=== PATIENT | female | born 1935 | race Caucasian/White ===

== ENCOUNTER 2023-12-18 03:24 | Inpatient (IN) | payer MEDICARE, OTHER, SELFPAY ==
[2023-12-18] VITALS (9 sets, daily range): BP systolic 102–170; BP diastolic 58–120; BMI 24.0
--- NOTE | 2023-12-18 01:45 | ED.GENMED ---
History of Present Illness
General
Chief Complaint: Fall
Source: patient
Exam Limitations: none
Time Seen by Provider: 12/18/23 01:35
Travel History
Have you had any contact with someone who has COVID-19?: No
Do you have any symptoms of coronavirus? Fever > 100 degrees, chills, cough, shortness of breath, sore throat, loss of taste or smell, muscle aches, or headache?: No
History of Present Illness
History of Present Illness:
This is a 88 year old female that comes in by ambulance with c/o left hip pain. State that she was going up the steps and she is not sure what happened that she may have been half a sleep. States that she fell backward and went down about 4-5 steps
hitting her head on the floor. States that she tried to catch herself but was unable. State that she has pain in the left hip. Denies any LOC or blood thinners. Denies any fever,chills, chest pain, SOB, abd pain, nausea, vomiting, diarrhea,
headache, dizziness, urinary burning.
Past History
Past History
ED Past Medical History: Other (RA); Negative Asthma, HTN, Hypercholesterolemia or NIDDM
ED Past Surgical History: Gynecological (Hysterectomy)
Social History
Tobacco: Non-smoker
Alcohol: Occasional
Personal:
Living: alone
Review of Systems
Review of Systems
All Other Systems: ROS reviewed and negative except as documented in HPI and ROS
Constitutional: Reports no symptoms; Denies fever or chills
EENT: Reports no symptoms
Respiratory: Reports no symptoms; Denies cough or trouble breathing
Cardiac: Reports no symptoms; Denies chest pain
ABD/GI: Reports no symptoms; Denies abdominal pain, nausea, vomiting or diarrhea
: Reports no symptoms; Denies dysuria, frequency or urgency
Musculoskeletal: Reports joint pain (Left hip pain)
Skin: Reports no symptoms
Neurological: Reports no symptoms; Denies dizzy or headache
Psychiatric: Reports no symptoms
Phy Exam
General Physical Exam
General Presentation: no apparent distress
General age: appears stated age
General Skin: warm and dry
General Habitus: elderly
General Mental: alert
General Hydration: appears well hydrated
ENT Exam
ENT Exam: TM's normal, pharynx normal and neck supple
Eye Exam
Eye Exam: EOMI
Cardiovascular Exam
Cardiovascular Exam: regular rate/rhythm, no edema, no murmur and normal peripheral pulses
Pulmonary Exam
Pulmonary Exam: lungs clear, no respiratory distress, no rales, chest non tender, no crackles, no rhonchi, no wheezing and no cough
Gastrointestinal Exam
Gastrointestinal Exam: normal bowel sounds, non tender, soft, no organomegaly and no pulsatile mass
Musculoskeletal Exam
Musculoskeletal Exam: no edema and other (Left leg slightly shortened and externally rotated)
Skin Exam
Skin Exam: normal color, warm/dry, no rash, no petechia and other (small abrasion noted on the right serra and left elbow)
Psychiatric Exam
Psychiatric Exam: normal mood/affect
Course
Orders/Labs/Results
Orders:
Orders
12/18/23 01:44
CT Cervical Spine W/o Iv Contr Urgent
Comment:
Reason For Exam: Fall backward onto hard floor
CT Head W/o Iv Contrast Urgent
Comment:
Reason For Exam: Fall hitting head
Hip, Left 2-3 Views [CR Hip - LT w/wo Pel 2-3 Vw*] Urgent
Comment:
Reason For Exam: Fall, hip pain
Include a pelvis x-ray?: Yes
12/18/23 01:45
Morphine Sulfate 2 mg IV NOW STA
Ondansetron Injectable [Zofran] 4 mg IV NOW STA
12/18/23 01:57
Complete Blood Count/With Diff Urgent
Comprehensive Metabolic Panel Urgent
12/18/23 02:26
HYDROmorphone [Dilaudid] 1 mg IV NOW STA
12/18/23 02:27
HYDROmorphone [Dilaudid] 1 mg .ROUTE .STK-MED ONE
12/18/23 02:37
Consult Orthopedic [ORTHOPEDIC CONSULT] Urgent
Consulting Provider: Martha Jackson I.
Was physician already notified: Yes
Abnormal Lab Results
12/18/23
01:57
RBC 3.75 L 10^6/uL
(4.20-5.40)
Hct 35.1 L %
(37.0-47.0)
MCH 32.8 H pg
(27.0-31.0)
Abs Immat Gran (auto) 0.1 H 10^3/uL
(0-0.05)
Absolute Monos (auto) 0.9 H 10^3/uL
(0.1-0.6)
Immature Gran % 0.7 H %
(0-0.5)
Lymphocytes % 14.2 L %
(20.5-51.1)
Monocytes % 10.2 H %
(1.7-9.3)
BUN 28 H mg/dl
(7-17)
Glucose 100 H mg/dl
(70-99)
Total Protein 5.9 L g/dl
(6.3-8.2)
12/18/23 01:57
12/18/23 01:57
Dehydration. Glucose nonfasting. Total protein low.
Vital Signs
Initial and Last Documented VS:
Initial Vital Signs
Temp Pulse Resp BP Pulse Ox
98 F 83 16 170/83 99
12/18/23 01:37 12/18/23 01:37 12/18/23 01:37 12/18/23 01:37 12/18/23 01:37
Last Documented Vital Signs
Temp Pulse Resp BP Pulse Ox
98 F 83 16 170/83 99
12/18/23 01:37 12/18/23 01:37 12/18/23 01:37 12/18/23 01:37 12/18/23 01:37
MDM/Problems Addressed
Differential Diagnosis Includes:
Left hip fracture, Hip dislocation.
MDM/Problems Addressed:
This is a 88 year old female that comes in with by ambulance with c/o fall. states that she was going up the steps when she fell. States that she must have been half asleep and she tried to catch herself but was unable. States that she fell backward
down 4-5 carpeted steps and landed hitting her head on the floor and that she has pain in the left hip.
Will get labs. X-ray and medicate for pain. Will also get CT of head and cervical neck.
Back into see patient. Explained that she has a left hip fracture. Will notify Orthopedics and Hospitalist about admission.
Chronic conditions affecting care:
NA
Acute Exacerbation and/or Progression of Chronic Illness:
NA
*Radiology
Radiology exam reviewed: radiology read reviewed (CT cervical spine- Night hawk- Head: No acute intracranial hemorrhage, herniation or hydrocephalus. C-spine: No acute fracture or traumatic malalignment. No prevertebral soft tissue swelling.
Bilateral thyroid nodules. )
*EKG
Interpreted by ED Provider?: NA
Rate: EKG- N/A
*Ultrasound Manager Interpretation
Rate: Ultrasound Manager- N/A
*Critical Care Note
Total Time (30-74mins, 75-104mins- exclusive of procedures): Not Applicable
ED Attending Note
-
Portions of this chart may have been created with voice recognition software.� Occasional wrong word or��sound alike� substitutions may have occurred due to the inherent limitations of voice recognition software.
Discharge Plan
Departure
Patient Disposition: Admit
Date of Disposition: 12/18/23
Time of Disposition: 02:38
Admit to: Med/Surg
Presentation/result/management discussed w/ accepting MD/DO: Hospitalist
Patient with high blood pressure during this ER visit?: Yes
Condition: Good
Covid-19: Not Applicable
Discharge Problem:
Fracture of hip, left, closed
Prescriptions:
No Action
alendronate [Fosamax] 70 mg Tablet
70 mg PO WEEKLY
methotrexate sodium 2.5 mg Tablet
20 mg PO QWEEK
prednisone 1 mg Tablet
4 mg PO DAILY
folic acid 1 mg Tablet
1 mg PO DAILY
Referrals:
Jamel Epps MD [Family Provider] -
Interventions
Interventions:
*Risk Screen - Suicide Last Done: 12/18/23 01:37
*General Assessment Last Done: 12/18/23 01:37
*Neglect/Abuse Screening Last Done: 12/18/23 01:37
ED- Fall Risk Assessment Last Done: 12/18/23 02:06
*ED COVID-19 Vaccine History Last Done: 12/18/23 02:06
ED-Musculoskeletal Assessment Last Done: 12/18/23 02:06
ED- Neurological Assessment Last Done: 12/18/23 02:06
ED-Skin Assessment Last Done: 12/18/23 02:06
[2023-12-18] MEDS: ZOFRAN 4 MG IV (01:56)
[2023-12-18] MEDS: MORPHINE SULFATE 2 MG IV (01:56)
[2023-12-18 02:04] LABS: % Basophils 0.5 % (0-2); % Eosinophils 1.6 % (0-6); % Immature Granulocytes 0.7 % (0-0.5); % Lymphocytes 14.2 % (20.5-51.1); % Monocytes 10.2 % (1.7-9.3); % Neutrophils 72.8 % (42.2-75.2); Absolute Eosinophils 0.1 10^3/uL (0-0.7); Absolute Immature Granulocytes 0.1 10^3/uL (0-0.05); Absolute Lymphocytes 1.2 10^3/uL (1.2-3.4); Absolute Monocytes 0.9 10^3/uL (0.1-0.6); Absolute Neutrophils 6.3 10^3/uL (1.4-6.5); Hematocrit 35.1 % (37.0-47.0); Hemoglobin 12.3 g/dL (12.0-16.0); Mean Corpuscular Hgb 32.8 pg (27.0-31.0); Mean Corpuscular Volume 93.6 fL (81.0-99.0); Mean Platelet Volume 9.8 fL (7.4-10.4); Nucleated Red Blood Cells % 0 %; Platelet Count 220 10^3/uL (130-400); Red Blood Cell Count 3.75 10^6/uL (4.20-5.40); Red Cell Dist. Width 13.4 % (11.5-14.5); White Blood Cell Count 8.6 10^3/uL (4.8-10.8)
[2023-12-18 02:26] LABS: ALT (SGPT) 18 U/L (0-35); AST (SGOT) 23 U/L (14-36); Albumin 3.6 g/dl (3.5-5.0); Alkaline Phosphatase 54 U/L (38-126); Blood Urea Nitrogen 28 mg/dl (7-17); Calcium 10.2 mg/dl (8.4-10.2); Carbon Dioxide 24 mmol/L (22-30); Chloride 106 mmol/L (98-107); Glucose 100 mg/dl (70-99); Potassium 4.2 mmol/L (3.5-5.1); Sodium 138 mmol/L (135-145); Total Bilirubin 0.6 mg/dl (0.2-1.3); Total Protein 5.9 g/dl (6.3-8.2); eGFR 54.87
[2023-12-18] MEDS: DILAUDID 1 MG IV (02:29)
--- NOTE | 2023-12-18 02:43 | HPS.HSE ---
Family Physician
-
Family Physician: Jamel Epps
Chief Complaint
-
Lt hippain and deformity s/p fall
History of Present Illness
88F HX Osteoporosis , [facility] left hip pain.
She was going up the steps and she is not sure what happened that she may have been half a sleep. States that she fell backward and went down about 4-5 steps hitting her head on the floor. Acute ain in the left hip.
Denies any LOC or blood thinners.
Denies any fever,chills, chest pain, SOB, abd pain, nausea, vomiting, diarrhea, headache, dizziness, urinary burning.
Medical History
Past Medical History
Past Medical History: Reports None
Past Surgical History: Reports None
Social History
Tobacco: Non-smoker
Alcohol: Occasional
Drug: None
Personal:
Living: Alone
Family History
Family History: Not pertinent
Allergies / Home Medications
Allergies reflects when Allergies were last updated in [facility].
Home Medications with original date entered in [facility]
Allergy/Medication List:
Allergies
Allergy/AdvReac Type Severity Reaction Status Date / Time
NKA - No Known Allergies Allergy Uncoded 03/06/08 10:58
Home Medications
alendronate 70 mg tablet (Fosamax) 70 mg PO WEEKLY 12/18/23
folic acid 1 mg tablet 1 mg PO DAILY 12/18/23
methotrexate sodium 2.5 mg tablet 20 mg PO QWEEK 12/18/23
prednisone 1 mg tablet 4 mg PO DAILY 12/18/23
Review of Systems
-
Constitutional: Reports No Symptoms
EENT: Reports No Symptoms
Respiratory: Reports No Symptoms
Cardiac: Reports No Symptoms
Abdomen/GI: Reports No Symptoms
: Reports No Symptoms
Musculoskeletal: Reports See HPI
Skin: Reports No Symptoms
Neurological: Reports No Symptoms
Endocrine: Reports No Symptoms
Hematologic/Lymphatic: Reports No Symptoms
Psych: Reports No Symptoms
Physical Exam
Vital Signs
Vital Signs
Temp Pulse Resp BP Pulse Ox
98 F 83 16 170/83 99
12/18/23 01:37 12/18/23 01:37 12/18/23 01:37 12/18/23 01:37 12/18/23 01:37
Physical Exam
General: Other (see below )
Laboratory Results
-
12/18/23 01:57
12/18/23 01:57
Laboratory Results
Total Bilirubin 0.6 mg/dl (0.2-1.3) 12/18/23 01:57
AST 23 U/L (14-36) 12/18/23 01:57
ALT 18 U/L (0-35) 12/18/23 01:57
Alkaline Phosphatase 54 U/L (38-126) 12/18/23 01:57
Data Reviewed
-
Diagnostic Radiology: Report Reviewed by me
Lab Data: Labs Reviewed by me
Impression/Plan
-
Reviewed VS: afebrile BP 170/80
PE
Gen: NAD
HEENT: atraumatic
Neck: supple
Lungs: CTA
Cor: RRR S1 S2
Abdomen: benign exam
CALENDER TENDER: AAO3 NFND
MS: Left leg slightly shortened and externally rotated)
Psych: nl mood and affect
Data
Nl WCC
nl Hgb
Unremarkable CMP
No prior hospitalist admission
ASSESSMENT & PLAN
Acute left hip fracture s/p mechanical fall
No blood thinners
RCRI Class I - 3.9% 30 day risk of , VA, cardiac arrest
medically acceptable to proceed with Ortho OR
Benefits out weigh risk of OROIF
- NPO and IVF
- Fx set protocol
- ortho consulted
HX RA on chr prednisone and MTX
- Held MTX
- cont. PO prednisone
DVT Px: SCD
Code: full code
IP MS
[2023-12-18] MEDS: DILAUDID 0.25 MG IV ×4 (04:11→18:42)
--- NOTE | 2023-12-18 04:15 | PTCARENOTE ---
Pt received from ED via stretcher. Pulled over to bed x4 without incident. AAOx3
--- NOTE | 2023-12-18 04:15 | PTCARENOTE ---
Pt received from ED via stretcher. Pulled over to bed x4 without incident. AAOx3. Oriented to surroundings and plan of care discussed. Admission and assessment completed. 1st set of CHG cloths completed. Static overlay in place. Purewick
external catheter placed for immobility. Pt medicated with IV dilaudid for 9/10 L hip pain (refer to JAN). Knee high SCDs applied. Call beal within reach. Will continue to closely monitor.
[2023-12-18] MEDS: TYLENOL 650 MG PO ×5 (04:18→23:41)
--- NOTE | 2023-12-18 07:25 | W.PN.HOSP.TC ---
Addendum entered and electronically signed by Carrington Leger MD 12/18/23 09:57:
Addendum
EKG showing A fib
no previous history
will put on telemetry
Give IV metoprolol for now
Order echo
Appreciate cardiology input
d/w nursing staff
End
Original Note:
Today's Communication/Plan
-
.
Assessment / Plan
Assessment / Plan
Physical Exam
-
General: Well Developed and No Apparent Distress
HEENT: Normocephalic, Atraumatic, Moist Mucous Membranes.
Respiratory: Clear to Auscultation
Cardiac: Regular Rhythm and S1/S2; Negative Murmur, Rub or Gallop
GI: Soft, Nontender, Nondistended and Normal Bowel Sounds.
Rectal: No rectal bleeding noted.
Musculoskeletal: No Clubbing, No Cyanosis and No Edema
Skin: Negative Rash
Neuro: Awake, Alert, Oriented, AO x 3 and Nonfocal/Grossly Intact
Psych: Calm
Acute left hip fracture s/p mechanical fall
No blood thinners
- Fx set protocol
Appreciate ortho help
# [id number]
will do EKG
No known history of a fib
no chest pain
will follow
HX RA on chr prednisone and MTX
- Held MTX
- cont. PO prednisone
Total time spent to see the patient, examine the patient on the floor, review data and lab results, discuss treatment plan with patient and nursing staff around 55 minutes
Anticipated Discharge: > 48 hours
Subjective/Interval History
-
Date of Service: December 18, 2023
Left hip soreness
No chest pain
No sob
Objective Data
-
Labs:
Laboratory Results
12/18/23
01:57
WBC 8.6
Hgb 12.3
Hct 35.1 L
Plt Count 220
Sodium 138
Potassium 4.2
Chloride 106
Carbon Dioxide 24
BUN 28 H
Creatinine 1.0
Glucose 100 H
Calcium 10.2
Total Bilirubin 0.6
AST 23
ALT 18
Alkaline Phosphatase 54
Vital Signs:
Vital Signs
Temp Pulse Resp BP Pulse Ox
98.7 F 81 16 146/70 96
12/18/23 04:04 12/18/23 04:04 12/18/23 04:04 12/18/23 04:04 12/18/23 05:50
[2023-12-18] MEDS: DELTASONE 4 MG PO (08:53)
--- NOTE | 2023-12-18 09:27 | CON.ORTHO ---
Consultation
-
Date/Time Consultation Requested: Jan 06
Date/Time Consultation Performed: Jan 06
Requesting Provider: Suhas
Performing Provider: Louis Jackson
Reason for Consultation: Left Hip Fracture
Consultation - Orthopedics
History
Dictation#[id number]
Was asked to see this very pleasant 88-year-old white female with a medical history of RA and osteoporosis who unfortunately fell down approximately 5 steps backwards last evening. she reports it was due to being 'groggy.' she does report a head
strike but no LOC. She is not lightheaded or dizzy. she was transported to via EMS where plain radiographs confirmed a left femoral neck fracture. She has been admitted to the hospitalist service and we have been requested in consultation for
the consideration of surgical correction. She denies any previous injuries or issues with the left hip
Allergies / Home Medications
Allergy/AdvReac Type Severity Reaction Status Date / Time
NKA - No Known Allergies Allergy Uncoded 03/06/08 10:58
Medication Instructions Recorded
alendronate 70 mg tablet (Fosamax) 70 mg PO WEEKLY 12/18/23
folic acid 1 mg tablet 1 mg PO DAILY 12/18/23
methotrexate sodium 2.5 mg tablet 20 mg PO QWEEK 12/18/23
prednisone 1 mg tablet 4 mg PO DAILY 12/18/23
Vital Signs / Lab Results
Temp Pulse Resp BP Pulse Ox
98.2 F 115 18 116/79 92
12/18/23 07:26 12/18/23 07:26 12/18/23 07:26 12/18/23 07:26 12/18/23 07:26
12/18/23 01:57
12/18/23 01:57
Assessment / Plan
PE: Afeb. Hgb 12. currently at bedrest. Left hip skin intact. LLE short and ER. Generalized pain to palpation. Deferred ROM. + logroll LLE. Knee nontender. DNVI LLE
Xrays: LEFT FNF
Impression: GAGANDEEP
Plan: I had an at length bedside discussion with the patient regarding her left hip fracture and our proposed treatment recommendations. We discussed nonsurgical and surgical management and the RBA's of each. after accepting all the proposed
risks of surgery she has elected to proceed if we deem this the most appropriate form of management. tentative plan for LEFT hip hemiarthroplasty is early afternoon tomorrow, [address]. We discussed the postop and rehab
course as well, for which we will appreciate [facility] assistance. Surgical site has been marked as the LEFT hip. surgical and blood consents have been signed and placed to the patient's chart. T&S has been placed. Patient will be NPO pMN tonight. ABX
and irrigation products have been ordered. OR aware. patient has already been cleared by the hospitalist team. barring any unforeseen last-minute setbacks we are looking forward to assisting Ms. De La Rosa with her LEFT hip fracture tomorrow
afternoon. will continue to follow
[2023-12-18] MEDS: LOPRESSOR 5 MG IV (10:05)
--- NOTE | 2023-12-18 10:41 | PTCARENOTE ---
pt aaox3. states pain 9/10 in left hip when moving pain med given as ordered. room air. breath sounds diminished at bases. heart rate found to be irregular on assessment. Dr Leger notified. ekg done placed on tele monitor. showed pt in afib
with rvr. aware medication ordered.
--- NOTE | 2023-12-18 11:22 | CON.CAR ---
Addendum entered and electronically signed by Zeenat Brown DO 12/18/23 21:11:
I saw and examined the patient.
The Roundsman's note was reviewed and I agree with the note.
Comment: Patient seen and examined with cardiac PA. Patient came to [facility] early this morning after a fall at home and is now admitted with a hip fracture and cardiology has been consulted for preoperative evaluation and for new Afib. Patient lives
alone and reports walking up the stairs in her home very late last night and then falling backwards. She felt like she was asleep when it happened and that it did not seem real. She fell backwards and hit her head. She laid on the ground for about
20 minutes and then managed to make it to a phone to call for help. She denies loss of consciousness/syncope. She denies preceding lightheadedness, dizziness, palpitations, chest pain or pressure or shortness of breath. Patient was brought to
[facility] and is now admitted with a left hip fracture. No ECG on admission. Plan was for patient to have operative repair today, but HR has been elevated this morning and ECG shows new Afib with RVR. Patient denies known cardiac history including
atrial fibrillation or known coronary artery disease. No history of stroke/TIA. Patient follows with a service order dispatcher at [facility] For her RA on longstanding prednisone 4 mg daily and methotrexate. She is currently lying supine and comfortable
complaining only of hip pain in atrial fibrillation's with heart rates low 100s.
GEN: NAD,� AAO x3
HEENT: EOMI, MMM
LUNGS: Clear anterolaterally without wheeze or rales
CV: Irregularly irregular, heart rates 90s to 100s. Positive S1-S2. No murmur.
ABD: soft, BS+, NT, ND
EXT: No edema. Left hip fracture
NEURO: Gross non-focal
Plan:
Fall without reported syncope resulting in left femoral neck fracture
-Orthopedics consulted with plan for surgery tomorrow
-From a cardiac standpoint patient has no symptoms of heart failure or chest pain with reassuring echocardiogram and is likely low to intermediate cardiovascular risk. She is stable and may proceed with surgery as planned
Newly diagnosed atrial fibrillation of unclear duration
-Reviewed diagnosis, pathophysiology, treatment options, stroke risk and stroke reduction with patient
-Given need for orthopedic surgery for left hip fracture following fall we will plan for rate control strategy.
-She received Lopressor 5 mg IV prior to my assessment with improved heart rates. Will transition to Lopressor 12.5 mg PO q 6 hours plus Lopressor 5 mg IV PRN HR greater than 140.
-Patient will eventually need OAC. [id number] score 3 due to age and female gender
-Start Heparin gtt without bolus. Eventual transition to oral Eliquis postop once cleared by surgery
-Echocardiogram reviewed after consultation noting normal biventricular size and systolic function with no hemodynamically significant valve pathology. No pericardial effusion.
-TSH was normal at 2.94
-Can consider rhythm control strategy once she has recovered from upcoming surgery and can be discussed further as an outpatient
Rheumatoid arthritis on chronic prednisone and methotrexate weekly along with folic acid and Fosamax
-She is followed as an outpatient with [facility] rheumatology
-Methotrexate is currently held per medicine
Will follow with you postop
Check postop EKG
Continue telemetry monitoring
Outpatient cardiac follow-up will be arranged following this hospitalization
Original Note:
Consultation
Consultation Request
Date/Time Consultation Requested: 12/18/23
Date/Time Consultation Performed: 12/18/23
Requesting Provider: Dr. Leger
Performing Provider: Dr. Brown
Reason for Consultation: Newly diagnosed Afib of unclear duration
Medical History
-
History of Present Illness:
Patient came to [facility] early this morning after a fall at home and is now admitted with a hip fracture and cardiology has been consulted for preoperative evaluation and for new Afib. Patient lives alone and reports walking up the stairs in her home
very late last night and then falling backwards. She felt like she was asleep when it happened and that it did not seem real. She fell backwards and hit her head. She laid on the ground for about 20 minutes and then managed to make it to a phone to
call for help. Patient was brought to [facility] and is now admitted with a left hip fracture. No ECG on admission. Plan was for patient to have operative repair today, but HR has been elevated this morning and ECG shows new Afib with RVR. Patient denies
palpitations. There is no known h/o Afib. No h/o thromboembolic event and patient has never been anticoagulated for another reason. No cardiac history, but patient follows with a service order dispatcher at [facility] for her RA. No chest pain or palpitations.
PMH:
RA on chronic prednisone and methotrexate
Past Medical History
Past Medical History: Other (in HPI)
Past Surgical History: Gynecological (vaginal hysterectomy)
Social History
Tobacco: Non-Smoker
Alcohol: Occasional
Drug: None
Personal:
Living: Alone
Family History
Family History: CAD
Allergies / Home Medications
Allergy/AdvReac Type Severity Reaction Status Date / Time
NKA - No Known Allergies Allergy Uncoded 03/06/08 10:58
Medication Instructions Recorded Confirmed Type
alendronate 70 mg tablet (Fosamax) 70 mg PO WEEKLY 12/18/23 12/18/23 History
folic acid 1 mg tablet 1 mg PO DAILY 12/18/23 12/18/23 History
methotrexate sodium 2.5 mg tablet 20 mg PO QWEEK 12/18/23 12/18/23 History
prednisone 1 mg tablet 4 mg PO DAILY 12/18/23 12/18/23 History
Review of Systems
-
History Source: Patient
All other systems: Negative unless noted
Physical Exam
Vital Signs
Temp Pulse Resp BP Pulse Ox
97.9 F 121 20 102/61 92
12/18/23 10:54 12/18/23 10:54 12/18/23 10:54 12/18/23 10:54 12/18/23 10:54
GEN: NAD, AAO x3
HEENT: EOMI, MMM
LUNGS: Clear anterolaterally without wheeze or rales
CV: Reg, S1/S2, no murmur
ABD: soft, BS+, NT, ND
EXT: No clubbing, cyanosis, lesions or edema B/L
NEURO: Gross non-focal
SKIN: Warm, dry and pink. No rash
Lab Results
12/18/23 01:57
12/18/23 01:57
Impression / Plan
-
PCP: Dr. Epps
Cardiology: None prior to admission
Impression:
Admitted with fall 12/18/23
Left hip fracture
Newly diagnosed Afib of unclear duration
RA on chronic prednisone and methotrexate
Echo 12/18/23: Study pending
Plan:
-Patient came to [facility] early this morning after a fall at home and is now admitted with a hip fracture and cardiology has been consulted for preoperative evaluation and for new Afib. Patient lives alone and reports walking up the stairs in her home
very late last night and then falling backwards. She felt like she was asleep when it happened and that it did not seem real. She fell backwards and hit her head. She laid on the ground for about 20 minutes and then managed to make it to a phone to
call for help. Patient was brought to [facility] and is now admitted with a left hip fracture. No ECG on admission. Plan was for patient to have operative repair today, but HR has been elevated this morning and ECG shows new Afib with RVR. Patient denies
palpitations. There is no known h/o Afib. No h/o thromboembolic event and patient has never been anticoagulated for another reason. No cardiac history, but patient follows with a service order dispatcher at [facility] for her RA. No chest pain or palpitations.
-ECG reviewed by me shows Afib with RVR.
-Afib is a new diagnosis and duration is unclear. There was no ECG on admission and patient has been in Afib since tele started this morning. Patient is asymptomatic. HRs improving with addition of Lopressor 5 mg IV q 6 hours. Patient was not taking
any AV lex blockers prior to admisison. Will transition to Lopressor 12.5 mg PO q 6 hours plus Lopressor 5 mg IV PRN HR greater than 140.
-Patient will eventually need OAC. For now will start Heparin gtt without bolus and then start OAC, likely, Eliquis 2.5 mg BID, once cleared by surgery.
-Check echo
-Recheck ECG in AM
-TSH was normal at 2.94.
[2023-12-18] MEDS: TYLENOL PO (11:56)
--- NOTE | 2023-12-18 12:03 | CM ---
Reviewed the chart notes and spoke with the patient at the beside. Per patient, surgery tomorrow for hip fx repair. The patient resides alone in a two story home with three steps to enter. The patient has a shower chair and rails. The patient
reports no VN/SNF in the past. The patient confirmed her pharmacy of choice is the [address] CM continues to be available to patient/family and is monitoring medical plan for needs at discharge.
Plan: Discharge most likely to SNF/rehab prior to transitioning back to home.
[2023-12-18 14:08] LABS: APTT 24.2 Sec (23.4-35.0)
[2023-12-18] MEDS: HEPARIN 25000 UNITS/250 ML IV ×2 (14:09→20:52)
[2023-12-18] MEDS: LOPRESSOR 12.5 MG PO ×2 (17:22→23:41)
--- NOTE | 2023-12-18 17:22 | W.PN.UPDATE ---
Update Note
Progress Note Update
Patient seen and examined. Agree with orthopedic PA note.
Patient ambulates with a cane in the community but does not use any assistive devices at home with ambulation. She left hip pain. Has not had any left hip pain in the past. She was admitted to the hospitalist service after a fall Early this
morning. We were consulted for orthopedic evaluation of a left femoral neck fracture. Upon admission she was diagnosed with new onset A-fib and placed on heparin as per cardiology.
Left lower extremity: Shortening of left lower extremity. Positive logroll test. Good active range of motion of the ankle. Neurovascularly intact.
X-rays performed today AP and lateral of left hip show a displaced left femoral neck fracture.
Impression displaced left femoral neck fracture
Plan: Patient appears to be medically optimized for surgery tomorrow. Will discontinue use of her heparin this evening we will perform procedure around 1230 1:00. Nonoperative and operative approaches of her fracture were discussed. I recommend
left hip hemiarthroplasty. She has not complained of arthritic type symptoms prior to her injury and therefore total hip is not needed for treatment of her fracture. The risks are but are not limited to infection, need for further surgery, need
for physical therapy, stiffness, DVT, PE, CT, CVA, need for conversion to total hip in the future, posttraumatic arthritis, periprosthetic fracture, dislocation of prosthesis, wound healing problems, foot drop, leg length discrepancy, neurovascular
impairment, catastrophic occurrences, etc. Postoperative regimen was discussed. All questions were answered.
[2023-12-18] MEDS: COLACE 100 MG PO (20:14)
[2023-12-18] MEDS: ROXICODONE 5 MG PO (20:15)
[2023-12-18] MEDS: SENOKOT 17.1999999999999993 MG PO (20:15)
[2023-12-18 20:17] LABS: APTT 42.5 Sec (23.4-35.0)
[2023-12-19] VITALS (13 sets, daily range): BP systolic 103–134; BP diastolic 51–78
[2023-12-19 03:15] LABS: APTT 29.4 Sec (23.4-35.0)
[2023-12-19] MEDS: TYLENOL 650 MG PO ×6 (04:34→23:41)
[2023-12-19] MEDS: LOPRESSOR 12.5 MG PO ×4 (06:03→23:41)
--- NOTE | 2023-12-19 06:37 | W.PN.UPDATE ---
Update Note
Progress Note Update
Patient seen and evaluated by orthopedic surgery this morning. The patient is resting comfortably in bed, no acute distress. Afebrile. Plan for OR today for a left hip hemiarthroplasty under the direction of Dr. Jackson. T&S completed.
Preoperative orders placed. Consent form in patient's chart. Patient to remain NPO for surgery this afternoon. Remain bedrest for now. Upon admission, she was diagnosed with new onset A-fib and was placed on heparin as per cardiology. This was
discontinued yesterday evening. Will begin Eliquis 2.5 mg twice daily POD1. Orthopedic surgery will continue to follow along.
[2023-12-19] MEDS: NSS 1000 IV (08:36)
[2023-12-19] MEDS: DELTASONE 4 MG PO (08:37)
[2023-12-19] MEDS: COLACE 100 MG PO ×2 (08:37→20:26)
[2023-12-19] MEDS: SENOKOT 17.1999999999999993 MG PO ×2 (08:37→20:25)
[2023-12-19 08:56] LABS: Hematocrit 36.2 % (37.0-47.0); Hemoglobin 12.2 g/dL (12.0-16.0)
--- NOTE | 2023-12-19 13:24 | CM ---
Reviewed the chart notes. Patient scheduled for surgery for hip fx repair today. CM continues to be available to patient/family and is monitoring medical plan for needs at discharge.
Plan: Discharge most likely to SNF/rehab prior to transitioning back to home.
--- NOTE | 2023-12-19 14:09 | W.PN.CARDCBS ---
Today's Communication / Plan
-
Converted to sinus rhythm
Cont metoprolol
Start Eliquis when safe from surgical standpoint
Impression / Plan
-
PCP: Dr. Epps
Cardiology: None prior to admission
Impression:
Admitted with fall 12/18/23
Left hip fracture
Newly diagnosed Afib of unclear duration
RA on chronic prednisone and methotrexate
Echo 12/18/23: LVEF 55-60%, no significant valvular pathology
Patient came to [facility] early this morning after a fall at home and is now admitted with a hip fracture and cardiology has been consulted for preoperative evaluation and for new Afib. Patient lives alone and reports walking up the stairs in her home
very late last night and then falling backwards. She felt like she was asleep when it happened and that it did not seem real. She fell backwards and hit her head. She laid on the ground for about 20 minutes and then managed to make it to a phone to
call for help. Patient was brought to [facility] and is now admitted with a left hip fracture. No ECG on admission. Plan was for patient to have operative repair today, but HR has been elevated this morning and ECG shows new Afib with RVR. Patient denies
palpitations. There is no known h/o Afib. No h/o thromboembolic event and patient has never been anticoagulated for another reason. No cardiac history, but patient follows with a commodities broker at [place] for her RA. No chest pain or palpitations.
Plan:
-Afib is a new diagnosis and duration is unclear
-Spontaneously converted to NSR 1030 PM at 2/5 without significant conversion pause
-Continue low dose metoprolol
-Plan to start Eliquis 2.5 mg BID when safe from ortho standpoint post-op
-Echo was unremarkable
-TSH was normal at 2.94.
Progress Note - Beam Sealer
Subjective
Date of Service: December 19, 2023
NAOE. Resting in bed comfortably this AM awaiting OR. No CP/SOB/palpitations.
Objective
Labs:
12/19/23 08:31
12/18/23 01:57
Labs
Hgb 12.2 g/dL (12.0-16.0) 12/19/23 08:31
Hct 36.2 % (37.0-47.0) L 12/19/23 08:31
Plt Count 220 10^3/uL (130-400) 12/18/23 01:57
APTT 29.4 Sec (23.4-35.0) 12/19/23 02:31
Sodium 138 mmol/L (135-145) 12/18/23 01:57
Potassium 4.2 mmol/L (3.5-5.1) 12/18/23 01:57
BUN 28 mg/dl (7-17) H 12/18/23 01:57
Creatinine 1.0 mg/dL (0.6-1.0) 12/18/23 01:57
Glucose 100 mg/dl (70-99) H 12/18/23 01:57
Vital Signs and I&O:
Vital Signs
Temp Pulse Resp BP Pulse Ox
97.7 F 67 20 134/58 97
12/19/23 11:50 12/19/23 12:10 12/19/23 11:50 12/19/23 12:10 12/19/23 11:50
Vital Signs
Temp Pulse Resp BP Pulse Ox
97.7 F 67 20 134/58 97
12/19/23 11:50 12/19/23 12:10 12/19/23 11:50 12/19/23 12:10 12/19/23 11:50
Intake & Output
12/17/23 12/18/23 12/19/23 12/20/23
06:59 06:59 06:59 06:59
Intake Total 600 / 600
Output Total 800 / 800
Balance -200 / -200
Physical Exam
Physical Exam
Gen: NAD, AAOx3
HEENT: NC/AT, sclera anicteric
Neck: No JVD
CV: RRR, NL s1/s2, no M/R/G
Lungs: CTAB
Abd: S/ND
Ext: No LE edema
Skin: Warm, dry
Neuro: Non-focal
--- NOTE | 2023-12-19 16:23 | W.PN.HOSP.TC ---
Today's Communication/Plan
-
.
Assessment / Plan
Assessment / Plan
Physical Exam
-
General: Well Developed and No Apparent Distress
HEENT: Normocephalic, Atraumatic, Moist Mucous Membranes.
Respiratory: Clear to Auscultation
Cardiac: Regular Rhythm and S1/S2; Negative Murmur, Rub or Gallop
GI: Soft, Nontender, Nondistended and Normal Bowel Sounds.
Rectal: No rectal bleeding noted.
Musculoskeletal: No Clubbing, No Cyanosis and No Edema
Skin: Negative Rash
Neuro: Awake, Alert, Oriented, AO x 3 and Nonfocal/Grossly Intact
Psych: Calm
Acute left hip fracture s/p mechanical fall
plan for left hemiarthroplasty today
Appreciate ortho help
# Paroxysmal Afib
now in SR
well controlled hR
change IV metoprolol to oral metoprolol ATC
Echo showed LVEF 55-60%, trace MR.
[id number] score 3
Plan for Eliquis 2.5mg BID in AM.
HX RA on chr prednisone and MTX
- Held MTX
- cont. PO prednisone
Total time spent to see the patient, examine the patient on the floor, review data and lab results, discuss treatment plan with patient and nursing staff around 55 minutes
Anticipated Discharge: 24 - 48 hours
Subjective/Interval History
-
Date of Service: December 19, 2023
Seen earlier in the day
Objective Data
-
Labs:
Laboratory Results
12/19/23
08:31
Hgb 12.2
Hct 36.2 L
Vital Signs:
Vital Signs
Temp Pulse Resp BP Pulse Ox
98.1 F 64 14 119/78 99
12/19/23 15:10 12/19/23 16:15 12/19/23 16:15 12/19/23 16:15 12/19/23 16:15
I&O
12/18/23 12/19/23 12/20/23
06:59 06:59 06:59
Intake Total 600 / 600
Output Total 800 / 800
Balance -200 / -200
[2023-12-19] MEDS: NSS IV (16:52)
[2023-12-19] MEDS: NORMOSOL-R 1000 IV (16:53)
--- NOTE | 2023-12-19 17:12 | PTCARENOTE ---
Received patient from PACU around 1700 via bed in stable condition. Left hip with aquacel C/D/I. Neurovascular check to gordy wnerma. Call beal within reach.
[2023-12-19] MEDS: ANCEF 5 IV (20:25)
--- NOTE | 2023-12-19 23:45 | PTCARENOTE ---
23:00- Pt ambulated with min assist of 1 and walker five feet, voided 350cc aber urine in bedside commode, expressed mod pain to L hip 5/10, received sheryl Tylenol. Pt tolerated OOB well, hip precautions maintained.
[2023-12-20] VITALS (10 sets, daily range): BP systolic 108–154; BP diastolic 53–73; PULSE 80; O2SAT 97–98; BMI 23.8
[2023-12-20] MEDS: NORMOSOL-R 1000 IV (03:14)
[2023-12-20] MEDS: ANCEF 5 IV (03:31)
[2023-12-20] MEDS: LOPRESSOR 12.5 MG PO (05:30)
[2023-12-20] MEDS: TYLENOL 650 MG PO ×4 (05:30→18:14)
[2023-12-20 06:10] LABS: Hematocrit 32.5 % (37.0-47.0); Mean Corp Hgb Conc. 33.8 g/dL (33.0-37.0); Mean Corpuscular Hgb 32.1 pg (27.0-31.0); Mean Corpuscular Volume 94.8 fL (81.0-99.0); Mean Platelet Volume 10.2 fL (7.4-10.4); Platelet Count 179 10^3/uL (130-400); Red Blood Cell Count 3.43 10^6/uL (4.20-5.40); Red Cell Dist. Width 13.3 % (11.5-14.5); White Blood Cell Count 15.7 10^3/uL (4.8-10.8)
--- NOTE | 2023-12-20 07:12 | W.PN.HOSP.TC ---
Today's Communication/Plan
-
.
Assessment / Plan
Assessment / Plan
Physical Exam
-
General: Well Developed and No Apparent Distress
HEENT: Normocephalic, Atraumatic, Moist Mucous Membranes.
Respiratory: Clear to Auscultation
Cardiac: Regular Rhythm and S1/S2; Negative Murmur, Rub or Gallop
GI: Soft, Nontender, Nondistended and Normal Bowel Sounds.
Rectal: No rectal bleeding noted.
Musculoskeletal: No Clubbing, No Cyanosis and No Edema
Skin: Negative Rash
Neuro: Awake, Alert, Oriented, AO x 3 and Nonfocal/Grossly Intact
Psych: Calm
# Acute displaced left femoral neck fracture s/p Left hip hemiarthroplasty by Dr Jackson on 12/19. No complications reported.
DVT Px with Eliquis
Tylenol ATC for pain
Appreciate ortho help
# Paroxysmal Afib
now in SR
well controlled HR
changed IV metoprolol to oral metoprolol ATC, change to long acting
Echo showed LVEF 55-60%, trace MR.
[id number] score 3
Starting Eliquis 2.5mg BID 12/20
# Mild acute blood loss anemia
Will monitor
Oral iron upon dc
# Leukocytosis, reactive. Afebrile
HX RA on chr prednisone and MTX
- Can resume MTX
- cont. PO prednisone
Total time spent to see the patient, examine the patient on the floor, review data and lab results, discuss treatment plan with patient and nursing staff around 57 minutes
Anticipated Discharge: 24 - 48 hours
Subjective/Interval History
-
Date of Service: December 20, 2023
No chest pain
No sob
no significant leg discomfort
Objective Data
-
Labs:
Laboratory Results
12/20/23
05:11
WBC 15.7 H
Hgb 11.0 L
Hct 32.5 L
Plt Count 179
Vital Signs:
Vital Signs
Temp Pulse Resp BP Pulse Ox
98.0 F 74 18 143/53 94
12/20/23 04:10 12/20/23 05:30 12/20/23 04:10 12/20/23 05:30 12/20/23 04:10
I&O
12/19/23 12/20/23 12/21/23
06:59 06:59 06:59
Intake Total 600 / 600 1705 / 1705
Output Total 800 / 800 900 / 900
Balance -200 / -200 805 / 805
--- NOTE | 2023-12-20 07:30 | W.PN.ORTHO ---
Today's Communication / Plan
-
88 yo F POD 1 left hip hemiarthroplasty under the direction of Dr. Jackson
--Patient may be WBAT to LLE with walker. Maintain THPs until 6-8 weeks post-op. We appreciate the assistance of PT/OT.
--Abductor pillow while in bed until 8 weeks post-op.
--Eliquis 2.5 mg BID.
--Continue current pain management regimen. Ice and elevation for edema control.
--Hgb 11.0 this AM. Continue to monitor.
--Aquacel to remain in place until 7-10 days post-op. Staple removal at 2 weeks post-op. If removed at SNF, follow up in office at 4 weeks post-op.
--Case management consult for discharge planning.
--Orthopedics will continue to follow along. Please reach out with any additional questions or concerns.
Assessment
.
Distal Motor Intact: Yes
Dressing:
Clean, dry and intact.
Plan
.
Surgery / Date: Left hip hemiarthroplasty, Jackson, 12/19/23
DVT Prophylaxis: Other (Eliquis)
Activity:
Out of bed.
PT/OT
Subjective
.
.:
Ms. De La Rosa is POD 1 following her left hip hemiarthroplasty performed by Dr. Jackson (DOS 12/19/2023). She is resting comfortably in bed this morning, and reports any pain in her hip is well controlled at present. She has no questions or concerns at
this time.
Vital Signs and Labs
.
Vital Signs and Labs:
Lab Results
12/20/23 05:11
12/18/23 01:57
Temp Pulse Resp BP Pulse Ox
98.0 F 74 18 143/53 94
12/20/23 04:10 12/20/23 05:30 12/20/23 04:10 12/20/23 05:30 12/20/23 04:10
Physical Exam
-
Directed exam of the left lower extremity reveals Aquacel dressing clean, dry and intact. Mild tenderness to palpation about the lateral hip. Thigh soft and compressible. Calf soft and nontender. Patient able to wiggle toes, plantar and dorsiflex
ankle. Neurovascularly intact distally.
--- NOTE | 2023-12-20 08:28 | W.PN.CARDCBS ---
Today's Communication / Plan
-
Remains sinus
Cont eliquis
Outpt follow up.
Please recall if needed
Impression / Plan
-
.
PCP: Dr. Epps
Cardiology: None prior to admission, initially seen by Dr Brown
Impression:
Admitted with fall 12/18/23
Left hip fracture
Newly diagnosed Afib of unclear duration with spontaneous conversion to sinus
RA on chronic prednisone and methotrexate
Echo Dec 18 2023: LVEF 55-60%, no significant valvular pathology
HPI: Patient came to [facility] early this morning after a fall at home and is now admitted with a hip fracture and cardiology has been consulted for preoperative evaluation and for new Afib. Patient lives alone and reports walking up the stairs in her
home very late last night and then falling backwards. She felt like she was asleep when it happened and that it did not seem real. She fell backwards and hit her head. She laid on the ground for about 20 minutes and then managed to make it to a
phone to call for help. Patient was brought to [facility] and is now admitted with a left hip fracture. No ECG on admission. Plan was for patient to have operative repair today, but HR has been elevated this morning and ECG shows new Afib with RVR.
Patient denies palpitations. There is no known h/o Afib. No h/o thromboembolic event and patient has never been anticoagulated for another reason. 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 No chest pain
or palpitations.
Plan:
Remains in sinus after spontaneous conversion to sinus.
Cont anticoagulation for stroke prophylaxis.
Eliquis 2.5 mg BID is her therapeutic dose.
Cont Metoprolol
She does not require additional therapy for rhythm control at this time.
TSH was normal
Echo reviewed and her EF is preserved with no significant valve disease.
Cont post op care
Stable cv status
Outpt follow up to be arranged.
Please recall if needed.
Progress Note - Judge'S Clerk
Subjective
Date of Service: December 20, 2023
Pt seen and examined. No cp or dyspnea.
Objective
Labs:
12/20/23 05:11
12/18/23 01:57
Labs
Hgb 11.0 g/dL (12.0-16.0) L 12/20/23 05:11
Hct 32.5 % (37.0-47.0) L 12/20/23 05:11
Plt Count 179 10^3/uL (130-400) 12/20/23 05:11
APTT 29.4 Sec (23.4-35.0) 12/19/23 02:31
Sodium 138 mmol/L (135-145) 12/18/23 01:57
Potassium 4.2 mmol/L (3.5-5.1) 12/18/23 01:57
BUN 28 mg/dl (7-17) H 12/18/23 01:57
Creatinine 1.0 mg/dL (0.6-1.0) 12/18/23 01:57
Glucose 100 mg/dl (70-99) H 12/18/23 01:57
Vital Signs and I&O:
Vital Signs
Temp Pulse Resp BP Pulse Ox
98.3 F 71 16 125/73 97
12/20/23 07:03 12/20/23 07:03 12/20/23 07:03 12/20/23 07:03 12/20/23 07:03
Vital Signs
Temp Pulse Resp BP Pulse Ox
98.3 F 71 16 125/73 97
12/20/23 07:03 12/20/23 07:03 12/20/23 07:03 12/20/23 07:03 12/20/23 07:03
Intake & Output
12/18/23 12/19/23 12/20/23 12/21/23
06:59 06:59 06:59 06:59
Intake Total 600 / 600 1705 / 1705
Output Total 800 / 800 900 / 900
Balance -200 / -200 805 / 805
Physical Exam
Physical Exam
General: No acute distress, AAOX3
Neck: Negative JVD
Heart: Regular, Negative S3 positive S1/S2, Negative S4, No murmur
Lungs: CTA b/l, negative wheezes/rales/rhonchi
Abd: Positive BS, NT/ND, neg rebound/rigidity/guarding
Ext: Negative cyanosis/clubbing/edema
Neuro: nonfocal
[2023-12-20] MEDS: TOPROL XL 50 MG PO (09:33)
[2023-12-20] MEDS: SENOKOT 17.1999999999999993 MG PO ×2 (09:33→20:28)
[2023-12-20] MEDS: ELIQUIS 2.5 MG PO ×2 (09:33→20:28)
[2023-12-20] MEDS: COLACE 100 MG PO ×2 (09:34→20:28)
[2023-12-20] MEDS: DELTASONE 4 MG PO (09:34)
[2023-12-20] MEDS: ROXICODONE 5 MG PO ×2 (09:38→18:15)
--- NOTE | 2023-12-20 13:37 | CM ---
Addendum entered by Gracie Laurent RN 12/20/23 16:26:
IMM signed and placed on chart.
Original Note:
Reviewed the chart notes and spoke with the patient at the bedside. Discussed with the patient that PT/OT recommending SNF/rehab prior to transitioning back to home. Patient had been at [facility] in past and requested referral be sent.
Referral and PASRR sent via [facility]. CM continues to be available to patient/family and is monitoring medical plan for needs at discharge.
Plan: SNF rehab prior to discharging back to home.
--- NOTE | 2023-12-20 14:05 | PN.CDI ---
Addendum entered and electronically signed by Carrington Leger MD 12/20/23 14:25:
Multifactorial due to Fall/Osteoporosis
Original Note:
CDI
- -
CDI:
Physician Documentation Request
Admit Date: 12/18/23 03:24
Dear Doctor Arsen,
Please review the following and provide your response in the progress notes.
Clinical Indicators:
Pt admitted with displaced left femoral neck fracture s/p surgery on 12/19
Documented per H&P,' HX Osteoporosis ...'
Orthopedic consult,' medical history of RA and osteoporosis who unfortunately fell down approximately 5 steps backwards last evening...'
Per chart/home meds pt is on 70 mg Fosamax Qweekly
Please provide the suspected Etiology of the documented displaced left femoral neck fracture:
Multifactorial due to Fall/Osteoporosis
Due to fall only
Other
Use of terms such as suspected, likely, concern for, or probable (associated with a specific diagnosis that is being evaluated, monitored, or treated as if it exists) are acceptable and can be coded in the inpatient setting, when documented at the
time of discharge.
Thank you,
Iveth Bergeron RN
CDI Specialist
[employer]
Please use your independent medical judgment in providing your response.
[2023-12-20] MEDS: NORMOSOL-R IV (18:13)
[2023-12-20] MEDS: TYLENOL PO (20:20)
[2023-12-21] MEDS: TYLENOL PO ×2 (00:39→05:26)
[2023-12-21 06:36] LABS: ALT (SGPT) 15 U/L (0-35); AST (SGOT) 30 U/L (14-36); Alkaline Phosphatase 59 U/L (38-126); Blood Urea Nitrogen 22 mg/dl (7-17); Calcium 9.4 mg/dl (8.4-10.2); Carbon Dioxide 27 mmol/L (22-30); Chloride 108 mmol/L (98-107); Estimated Creatinine Clearance 42 ml/min; Glucose 101 mg/dl (70-99); Potassium 5.1 mmol/L (3.5-5.1); Sodium 137 mmol/L (135-145); Total Bilirubin 0.4 mg/dl (0.2-1.3); Total Protein 5.3 g/dl (6.3-8.2); eGFR > 60.00
[2023-12-21 07:05] VITALS: BP 133/64
--- NOTE | 2023-12-21 07:38 | W.PN.ORTHO ---
Today's Communication / Plan
-
PT/OT
Weightbearing as tolerated
Hip precautions
Mechanical devices/Eliquis for DVT prophylaxis
Return to office 2 weeks for skin clip removal
Orthopedics sign off for now
Assessment
.
Distal Motor Intact: Yes
Dressing:
Clean, dry and intact.
Plan
.
Surgery / Date: Left hip hemiarthroplasty, Jackson, 12/19/23
DVT Prophylaxis: Other (Eliquis)
Activity:
Out of bed.
PT/OT
Discharge Plan: SNF
Subjective
.
.:
Patient resting comfortably.
Vital Signs and Labs
.
Vital Signs and Labs:
Lab Results
12/20/23 05:11
12/21/23 05:36
Temp Pulse Resp BP Pulse Ox
97.8 F 72 18 154/62 96
12/20/23 23:15 12/20/23 23:15 12/20/23 23:15 12/20/23 23:15 12/20/23 23:15
[2023-12-21] MEDS: DELTASONE 4 MG PO (08:39)
[2023-12-21] MEDS: ELIQUIS 2.5 MG PO ×2 (08:39→19:42)
[2023-12-21] MEDS: TYLENOL 650 MG PO ×5 (08:39→22:32)
[2023-12-21] MEDS: SENOKOT 17.1999999999999993 MG PO (08:39)
[2023-12-21] MEDS: COLACE 100 MG PO ×2 (08:40→19:42)
[2023-12-21] MEDS: TOPROL XL 50 MG PO (08:40)
--- NOTE | 2023-12-21 09:56 | W.DCSUMMARY ---
Discharge Summary
Discharge Data
Date of Admission: 12/18/23
Date of Discharge: 12/22/23
-
Pending Results: No
Hospital Course
88 years old female who presented to the emergency room after a fall at home. No head trauma. She was found to have displaced left femoral neck fracture. Patient had tachycardia. She was found to have atrial fibrillation with rapid ventricular
response. No history of atrial fibrillation in the past. Patient was diagnosed with paroxysmal atrial fibrillation. Echocardiogram showed normal left ventricular ejection fraction 55 to 60% with trace mitral regurgitation. Patient was started on
metoprolol. Her heart rate became controlled and she converted spontaneously to sinus rhythm. Patient was evaluated by orthopedic doctor. She underwent left hip hemiarthroplasty on December [address] Jackson, no complications reported. Patient
was started on Eliquis postoperatively. She tolerated medicine well. Heart rhythm remained sinus with well-controlled rate. Patient was evaluated by physical therapy. Patient remained hemodynamically stable. She was discharged to skilled
nursing facility in a stable condition.
Physical Exam
-
General: Well Developed and No Apparent Distress
HEENT: Normocephalic, Atraumatic, Moist Mucous Membranes.
Respiratory: Clear to Auscultation
Cardiac: Regular Rhythm and S1/S2; Negative Murmur, Rub or Gallop
GI: Soft, Nontender, Nondistended and Normal Bowel Sounds.
Rectal: No rectal bleeding noted.
Musculoskeletal: No Clubbing, No Cyanosis and No Edema
Skin: Negative Rash
Neuro: Awake, Alert, Oriented, AO x 3 and Nonfocal/Grossly Intact
Psych: Calm
Total discharge time spent to see the patient, examine the patient on the floor, review data and lab results, discuss discharge plan with patient and nursing staff around 65 minutes
Discharge Plan
-
Patient Disposition: Halfway/SNF
Discharge Diagnosis/Procedures: Acute displaced left femoral neck fracture secondary to fall with history of osteoporosis status post left hip hemiarthroplasty by Dr. Jackson on 12/19/23.
Paroxysmal atrial fibrillation, converted spontaneously to sinus rhythm. Continue with Eliquis and metoprolol.
Diet: As tolerated
Additional Diets: Weightbearing as tolerated
Hip precautions
Referrals:
Martha Jackson I., DO [Active] - in one month
Jamel Epps MD [Family Provider] - in one to two weeks
Bree Palacios PA-C [Specified Professional Personl] - 01/15/24 2:00 pm (You have cardiology follow up with Bree Palacios PA-C on January 14 at 2 [address] in [address] in the [facility] which is located behind the hospital. If you are unable to make
this appointment please call [phone] to reschedule)
Prescriptions:
New
metoprolol succinate 50 mg Tablet Extended Release 24 Hr
50 mg PO DAILY Qty: 30 0RF
Eliquis 2.5 mg Tablet
2.5 mg PO BID Qty: 60 0RF
acetaminophen [Tylenol Extra Strength] 500 mg tablet
1,000 mg PO Q6H PRN (Reason: mild to moderate pain) Qty: 10 0RF
tramadol 50 mg tablet
50 mg PO BID PRN (Reason: severe pain) Qty: 10 0RF
calcium carbonate-vitamin D3 [Oyster Shell Calcium-Vit D3] 500 mg-5 mcg (200 unit) Tablet
1 tab PO DAILY Qty: 30 0RF
Continued
alendronate [Fosamax] 70 mg Tablet
70 mg PO WEEKLY
methotrexate sodium 2.5 mg Tablet
20 mg PO QWEEK
prednisone 1 mg Tablet
4 mg PO DAILY
folic acid 1 mg Tablet
1 mg PO DAILY
Discharge Orders:
Discharge Patient (As Directed); Ordered 12/21/23
Ordered By: Carrington Leger
[2023-12-21 12:15] VITALS: BP 139/73; PULSE 73; O2SAT 96
[2023-12-21 12:30] VITALS: BP 139/73; PULSE 73; O2SAT 96
--- NOTE | 2023-12-21 13:19 | CM ---
Pt medically ready for d/c to snf
Accepted at [facility] - spoke with Lore - able to accept pt
Spoke with pt and then her daughter Amanda
Amanda reporting her mother is forgetful and sometimes confused - reporting family was not aware of chosen snf
Requested that family have input into process. Instructed to go to [email or web address] to choose additional facilities.
Amanda called back with [facility] and [facility] as additional facilities
Referral placed in [facility].
RN aware
[2023-12-21 15:35] VITALS: BP 105/84
--- NOTE | 2023-12-21 16:07 | W.PN.HOSP.TC ---
Today's Communication/Plan
-
Await placement
Assessment / Plan
Assessment / Plan
Physical Exam
-
General: Well Developed and No Apparent Distress
HEENT: Normocephalic, Atraumatic, Moist Mucous Membranes.
Respiratory: Clear to Auscultation
Cardiac: Regular Rhythm and S1/S2; Negative Murmur, Rub or Gallop
GI: Soft, Nontender, Nondistended and Normal Bowel Sounds.
Rectal: No rectal bleeding noted.
Musculoskeletal: No Clubbing, No Cyanosis and No Edema
Skin: Negative Rash
Neuro: Awake, Alert, Oriented, AO x 3 and Nonfocal/Grossly Intact
Psych: Calm
# Acute displaced left femoral neck fracture s/p Left hip hemiarthroplasty by Dr Jackson on 12/19. No complications reported.
DVT Px with Eliquis
Tylenol ATC for pain
Appreciate ortho help
# Paroxysmal Afib
now in SR
well controlled HR
changed IV metoprolol to oral metoprolol ATC, change to long acting
Echo showed LVEF 55-60%, trace MR.
[id number] score 3
Starting Eliquis 2.5mg BID 12/20
# Mild acute blood loss anemia
Will monitor
Oral iron upon dc
# Leukocytosis, reactive. Afebrile
HX RA on chr prednisone and MTX
- Can resume MTX
- cont. PO prednisone
Await placement
Total time spent to see the patient, examine the patient on the floor, review data and lab results, discuss treatment plan with patient, daughter on the phone and nursing staff around 57 minutes
Anticipated Discharge: Today
Subjective/Interval History
-
Date of Service: December 21, 2023
No complaints
Objective Data
-
Labs:
Laboratory Results
12/21/23
05:36
Sodium 137
Potassium 5.1
Chloride 108 H
Carbon Dioxide 27
BUN 22 H
Creatinine 0.8
Glucose 101 H
Calcium 9.4
Total Bilirubin 0.4
AST 30
ALT 15
Alkaline Phosphatase 59
Vital Signs:
Vital Signs
Temp Pulse Resp BP Pulse Ox
98.3 F 64 16 105/84 96
12/21/23 15:35 12/21/23 15:35 12/21/23 15:35 12/21/23 15:35 12/21/23 15:35
I&O
12/20/23 12/21/23 12/22/23
06:59 06:59 06:59
Intake Total 1705 / 1705 1480 / 1480
Output Total 900 / 900
Balance 805 / 805 1480 / 1480
[2023-12-21] MEDS: SENOKOT PO (19:41)
[2023-12-21 23:10] VITALS: BP 116/49
[2023-12-22] MEDS: TYLENOL PO ×2 (05:09→16:24)
[2023-12-22 06:08] LABS: Hematocrit 32.6 % (37.0-47.0); Hemoglobin 10.9 g/dL (12.0-16.0); Mean Corp Hgb Conc. 33.4 g/dL (33.0-37.0); Mean Corpuscular Hgb 32.9 pg (27.0-31.0); Mean Corpuscular Volume 98.5 fL (81.0-99.0); Mean Platelet Volume 10.4 fL (7.4-10.4); Platelet Count 218 10^3/uL (130-400); Red Blood Cell Count 3.31 10^6/uL (4.20-5.40); Red Cell Dist. Width 13.7 % (11.5-14.5); White Blood Cell Count 11.7 10^3/uL (4.8-10.8)
[2023-12-22 07:50] VITALS: BP 124/59
[2023-12-22] MEDS: OSCAL 500 + D 500 MG PO (08:09)
[2023-12-22] MEDS: DELTASONE 4 MG PO (08:09)
[2023-12-22] MEDS: ELIQUIS 2.5 MG PO (08:09)
[2023-12-22] MEDS: TOPROL XL 50 MG PO (08:09)
[2023-12-22] MEDS: SENOKOT 17.1999999999999993 MG PO (08:09)
[2023-12-22] MEDS: TYLENOL 650 MG PO ×2 (08:10→12:08)
[2023-12-22] MEDS: COLACE 100 MG PO (08:10)
[2023-12-22 09:10] VITALS: BP 120/59; PULSE 67; O2SAT 94
--- NOTE | 2023-12-22 10:26 | PTCARENOTE ---
RN received phone call from pt's daughter Amanda this am ( not listed in the chart), per pt [facility] [place] speak with Amanda. Daughter with questions regarding discharge, daughter updated that the manager perioperative is waiting to hear back from [facility] and [facility] as referrals were sent yesterday. Daughter then expressed frustration stating ' my mom didnt get dinner last night, she said the menu was on the floor and she tried to call down but was told it was too late so she said she just
had a couple crackers... I want to get her out of there as soon as possible'. RN apologized and explained to daughter that RN would follow up regarding the concern. Per daughter the pt called at 1820 and was told it was too late to order. Per Pt she
called ' 5 mins after it closed and was told by a gentleman that it was too late and she couldn't order. Pt also stated ' it was alright though i wasn't that hungry and ate some fruit'. RN called kitchen and was informed that a call was placed to
the pt approx 1700 and the attendant was told the patient was being discharged. Pt does not recall telling kitchen attendant that she was being discharged. Dena with dietary informed as well and to make comment for kitchen to follow up with [facility]
staff if no order is placed. Pt already being called at this time to place meal orders. RN encouraged pt to please call [facility] staff for any needs, Pt stated ' I was just so disgusted' RN asked 'why were you disgusted', Pt stated ' because all my
papers slid onto the floor'. RN reinforced with pt several times to please call for assistance. Name and phone number given to Leny romero manager perioperative to call and update daughter.
--- NOTE | 2023-12-22 10:27 | W.PN.HOSP.TC ---
Addendum entered and electronically signed by Carrington Leger MD 12/22/23 14:49:
Addendum
d/w showcase maker
pt need COVID test
came back negative
End
Total discharge time spent to see the patient, examine the patient on the floor, review data and lab results, discuss discharge plan with patient and nursing staff around 65 minutes.
Original Note:
Today's Communication/Plan
-
dc
Assessment / Plan
Assessment / Plan
Physical Exam
-
General: Well Developed and No Apparent Distress
HEENT: Normocephalic, Atraumatic, Moist Mucous Membranes.
Respiratory: Clear to Auscultation
Cardiac: Regular Rhythm and S1/S2; Negative Murmur, Rub or Gallop
GI: Soft, Nontender, Nondistended and Normal Bowel Sounds.
Rectal: No rectal bleeding noted.
Musculoskeletal: No Clubbing, No Cyanosis and No Edema
Skin: Negative Rash
Neuro: Awake, Alert, Oriented, AO x 3 and Nonfocal/Grossly Intact
Psych: Calm
# Acute displaced left femoral neck fracture s/p Left hip hemiarthroplasty by Dr Jackson on 12/19. No complications reported.
DVT Px with Eliquis
Tylenol ATC for pain
Appreciate ortho help
# Paroxysmal Afib
now in SR
well controlled HR
changed IV metoprolol to oral metoprolol ATC, change to long acting
Echo showed LVEF 55-60%, trace MR.
[id number] score 3
Starting Eliquis 2.5mg BID 12/20
# Mild acute blood loss anemia
Will monitor
Oral iron upon dc
# Leukocytosis, reactive. Afebrile
HX RA on chr prednisone and MTX
- Can resume MTX
- cont. PO prednisone
Await placement
Total time spent to see the patient, examine the patient on the floor, review data and lab results, discuss treatment plan with patient, daughter on the phone and nursing staff around 57 minutes
Anticipated Discharge: Today
Subjective/Interval History
-
Date of Service: December 22, 2023
No complaints
Objective Data
-
Labs:
Laboratory Results
12/22/23
04:54
WBC 11.7 H
Hgb 10.9 L
Hct 32.6 L
Plt Count 218 D
Vital Signs:
Vital Signs
Temp Pulse Resp BP Pulse Ox
98.8 F 71 16 124/59 95
12/22/23 07:50 12/22/23 07:50 12/22/23 07:50 12/22/23 07:50 12/22/23 07:50
I&O
12/21/23 12/22/23 12/23/23
06:59 06:59 06:59
Intake Total 1480 / 1480 2039
Balance 1480 / 1480 2039
--- NOTE | 2023-12-22 11:44 | CM ---
Reviewed the chart notes and spoke with the patient at the bedside and daughter Марина via telephone. Patient has been accepted to [facility] pending negative Covid screen.
Plan: Discharge to [facility]
Call report to: [phone]
Fax report to: [phone]
Medical necessity and transport forms on chart.
[2023-12-22 12:55] LABS: COVID-19 Antigen Negative (Negative)
== END 2023-12-22 16:29 | DRG 522 ==
LOC: 2 SOUTH 03:24
PROVIDERS: Clinical Nurse Specialist Family Health; Physician Assistant Medical; Student in an Organized Health Care Education/Training Program; ADMITTING PHYSICIAN Internal Medicine; ATTENDING PHYSICIAN Internal Medicine; CONSULT PHYSICIAN Internal Medicine Cardiovascular Disease; CONSULT PHYSICIAN Orthopaedic Surgery; EMERGENCY PHYSICIAN Emergency Medicine; FAMILY PHYSICIAN Internal Medicine Geriatric Medicine
PROC: 0SRS0J9 Replacement of Left Hip Joint, Femoral Surface with Synthetic Substitute, Cemented, Open Approach (ICD-10-PCS; 2023-12-19)
DX: S72.042A Displaced fracture of base of neck of left femur, initial encounter for closed fracture (principal); M80.052A Age-related osteoporosis with current pathological fracture, left femur, initial encounter for fracture; D62 Acute posthemorrhagic anemia; I48.0 Paroxysmal atrial fibrillation; W10.8XXA Fall (on) (from) other stairs and steps, initial encounter; M06.9 Rheumatoid arthritis, unspecified
CPT/HCPCS: 70450; 72125; 73501; 73502; 80053; 85014; 85018; 85025; 85027; 85730; 86850; 86900; 86901; 87811; 93005; 93306; 96374; 96375; 97110; 97116; 97161; 97167; 97530; 97535; 99285; C1713; C1776

== ENCOUNTER 2024-01-09 23:50 | Inpatient (IN) | payer MEDICARE, OTHER, SELFPAY ==
[2024-01-09] VITALS (8 sets, daily range): BP systolic 106–120; BP diastolic 56–66; BMI 24.6
[2024-01-09 16:48] LABS: % Basophils 0.2 % (0-2); % Eosinophils 0.1 % (0-6); % Immature Granulocytes 0.5 % (0-0.5); % Lymphocytes 3.9 % (20.5-51.1); % Monocytes 5.1 % (1.7-9.3); % Neutrophils 90.2 % (42.2-75.2); Absolute Immature Granulocytes 0.1 10^3/uL (0-0.05); Absolute Lymphocytes 0.7 10^3/uL (1.2-3.4); Absolute Monocytes 0.9 10^3/uL (0.1-0.6); Absolute Neutrophils 15.2 10^3/uL (1.4-6.5); Hematocrit 32.3 % (37.0-47.0); Hemoglobin 10.8 g/dL (12.0-16.0); Mean Corp Hgb Conc. 33.4 g/dL (33.0-37.0); Mean Corpuscular Hgb 31.9 pg (27.0-31.0); Mean Corpuscular Volume 95.3 fL (81.0-99.0); Mean Platelet Volume 9.5 fL (7.4-10.4); Nucleated Red Blood Cells % 0 %; Platelet Count 346 10^3/uL (130-400); Red Blood Cell Count 3.39 10^6/uL (4.20-5.40); Red Cell Dist. Width 13.6 % (11.5-14.5); White Blood Cell Count 16.8 10^3/uL (4.8-10.8)
[2024-01-09 17:01] LABS: ALT (SGPT) 23 U/L (0-35); AST (SGOT) 37 U/L (14-36); Albumin 2.9 g/dl (3.5-5.0); Alkaline Phosphatase 74 U/L (38-126); Blood Urea Nitrogen 22 mg/dl (7-17); Calcium 10.6 mg/dl (8.4-10.2); Carbon Dioxide 27 mmol/L (22-30); Chloride 98 mmol/L (98-107); Glucose 120 mg/dl (70-99); Potassium 4.6 mmol/L (3.5-5.1); Sodium 130 mmol/L (135-145); Total Bilirubin 0.8 mg/dl (0.2-1.3); Total Protein 5.9 g/dl (6.3-8.2); eGFR > 60.00
--- NOTE | 2024-01-09 18:42 | ED.GENMED ---
History of Present Illness
<Uriel Cherry, DO - Last Filed: 01/09/24 20:57>
General
Chief Complaint: Extremity Pain (non-traumatic)
Source: patient and family
Exam Limitations: none
Time Seen by Provider: 01/09/24 18:16
Nursing documentation reviewed up to this point in time: agreed with
Travel History
Have you had any contact with someone who has COVID-19?: No
Do you have any symptoms of coronavirus? Fever > 100 degrees, chills, cough, shortness of breath, sore throat, loss of taste or smell, muscle aches, or headache?: No
History of Present Illness
History of Present Illness:
88-year-old female with bilateral leg pain and urinary frequency with urinary incontinence. Recent left hip hemiarthroplasty.
Past History
<Uriel Cherry, DO - Last Filed: 01/09/24 20:57>
Past History
ED Past Medical History: Arrthythmia (A-fib) and Other (RA); Negative Asthma, HTN, Hypercholesterolemia or NIDDM
ED Past Surgical History: Gynecological (Hysterectomy)
Social History
Tobacco: Non-smoker
Alcohol: Occasional
Personal:
Living: alone
Review of Systems
<Uriel Cherry, DO - Last Filed: 01/09/24 20:57>
Review of Systems
Allergies reviewed?: Yes
All Other Systems: Not applicable
Constitutional: Reports no symptoms
EENT: Reports no symptoms
Respiratory: Reports no symptoms
Cardiac: Reports no symptoms
ABD/GI: Reports no symptoms
: Reports no symptoms
Musculoskeletal: Reports other (Bilateral leg pain)
Skin: Reports no symptoms
Neurological: Reports no symptoms
Endocrine: Reports no symptoms
Hematologic/Lymphatic: Reports no symptoms
Psychiatric: Reports no symptoms
Phy Exam
<Uriel Cherry, DO - Last Filed: 01/09/24 20:57>
Physical Exam
Physical Exam:
Physical Exam
General: no apparent distress, not acutely ill
Neck: supple. no meningeal signs. normal posterior pharynx
Heart: s1/s2 regular rate and rhythm, no murmur. equal radial
pulses.
HEENT: Pupils equal round reactive to light, EOMI
Lungs: no acute respiratory distress. clear bilaterally
Abdomen: normal bowel sounds. not tender. no CVAT
Neuro: alert and oriented. no focal neurological deficits cranial nerves II through XII intact
Skin: no rash, healed incision left hip
Psychiatric: well kept. interactive and cooperative
Extremities: no edema. no calf tenderness. negative homans. good distal pulses
Course
<Uriel Cherry, DO - Last Filed: 01/09/24 20:57>
Orders/Labs/Results
Orders:
Orders
01/09/24 16:37
CBC/With Diff [Complete Blood Count/With Diff] Urgent
CMP [Comprehensive Metabolic Panel] Urgent
01/09/24 18:41
Straight cath- Treatment ONCE
01/09/24 18:43
US Periph Venous LOWER Ext Alan Urgent
Comment:
Reason For Exam: bilateral leg pain post left hip fracture
01/09/24 19:15
Urinalysis Reflex To Culture Urgent
Date Specimen was Collected: 01/09/24
Time Specimen was Collected: 18:56
Urine Microscopic Reflex Cult Urgent
01/09/24 20:08
CT Head W/o Iv Contrast Urgent
Comment:
Reason For Exam: weakness, difficulty walking
01/09/24 22:24
Hip, Left 2-3 Views [CR Hip - LT w/wo Pel 2-3 Vw*] Urgent
Comment:
Reason For Exam: increased pain
Include a pelvis x-ray?: Yes
Knee, Left 4 or More Views [CR Knee - Left 4 Or More View*] Urgent
Comment:
Reason For Exam: pain, inability to weight bear
Lumbar Spine, 2 or 3 View [CR Lumbar Spine 2 Or 3 Views] Urgent
Comment:
Reason For Exam: pain, left leg weakness
Abnormal Lab Results
01/09/24 01/09/24
16:37 19:15
WBC 16.8 H 10^3/uL
(4.8-10.8)
RBC 3.39 L 10^6/uL
(4.20-5.40)
Hgb 10.8 L g/dL
(12.0-16.0)
Hct 32.3 L %
(37.0-47.0)
MCH 31.9 H pg
(27.0-31.0)
Abs Immat Gran (auto) 0.1 H 10^3/uL
(0-0.05)
Absolute Neuts (auto) 15.2 H 10^3/uL
(1.4-6.5)
Absolute Lymphs (auto) 0.7 L 10^3/uL
(1.2-3.4)
Absolute Monos (auto) 0.9 H 10^3/uL
(0.1-0.6)
Neutrophils % 90.2 H %
(42.2-75.2)
Lymphocytes % 3.9 L %
(20.5-51.1)
Sodium 130 L mmol/L
(135-145)
BUN 22 H mg/dl
(7-17)
Glucose 120 H mg/dl
(70-99)
Calcium 10.6 H mg/dl
(8.4-10.2)
AST 37 H U/L
(14-36)
Total Protein 5.9 L g/dl
(6.3-8.2)
Albumin 2.9 L g/dl
(3.5-5.0)
Leukocyte Esterase Rfl Trace A
(Negative)
Urine Bacteria (Reflex) Few A
(Negative)
01/09/24 16:37
01/09/24 16:37
Vital Signs
Initial and Last Documented VS:
Initial Vital Signs
Temp Pulse Resp BP Pulse Ox
98.9 F 78 18 108/63 96
01/09/24 16:24 01/09/24 16:24 01/09/24 16:24 01/09/24 16:24 01/09/24 16:24
Last Documented Vital Signs
Temp Pulse Resp BP Pulse Ox
98.9 F 76 18 119/66 95
01/09/24 16:24 01/09/24 22:00 01/09/24 16:24 01/09/24 22:00 01/09/24 22:15
<Shawn Mueller PA-C - Last Filed: 01/09/24 21:51>
Orders/Labs/Results
Orders:
Orders
01/09/24 16:37
CBC/With Diff [Complete Blood Count/With Diff] Urgent
CMP [Comprehensive Metabolic Panel] Urgent
01/09/24 18:41
Straight cath- Treatment ONCE
01/09/24 18:43
US Periph Venous LOWER Ext Alan Urgent
Comment:
Reason For Exam: bilateral leg pain post left hip fracture
01/09/24 19:15
Urinalysis Reflex To Culture Urgent
Date Specimen was Collected: 01/09/24
Time Specimen was Collected: 18:56
Urine Microscopic Reflex Cult Urgent
01/09/24 20:08
CT Head W/o Iv Contrast Urgent
Comment:
Reason For Exam: weakness, difficulty walking
01/09/24 22:24
Hip, Left 2-3 Views [CR Hip - LT w/wo Pel 2-3 Vw*] Urgent
Comment:
Reason For Exam: increased pain
Include a pelvis x-ray?: Yes
Knee, Left 4 or More Views [CR Knee - Left 4 Or More View*] Urgent
Comment:
Reason For Exam: pain, inability to weight bear
Lumbar Spine, 2 or 3 View [CR Lumbar Spine 2 Or 3 Views] Urgent
Comment:
Reason For Exam: pain, left leg weakness
Abnormal Lab Results
01/09/24 01/09/24
16:37 19:15
WBC 16.8 H 10^3/uL
(4.8-10.8)
RBC 3.39 L 10^6/uL
(4.20-5.40)
Hgb 10.8 L g/dL
(12.0-16.0)
Hct 32.3 L %
(37.0-47.0)
MCH 31.9 H pg
(27.0-31.0)
Abs Immat Gran (auto) 0.1 H 10^3/uL
(0-0.05)
Absolute Neuts (auto) 15.2 H 10^3/uL
(1.4-6.5)
Absolute Lymphs (auto) 0.7 L 10^3/uL
(1.2-3.4)
Absolute Monos (auto) 0.9 H 10^3/uL
(0.1-0.6)
Neutrophils % 90.2 H %
(42.2-75.2)
Lymphocytes % 3.9 L %
(20.5-51.1)
Sodium 130 L mmol/L
(135-145)
BUN 22 H mg/dl
(7-17)
Glucose 120 H mg/dl
(70-99)
Calcium 10.6 H mg/dl
(8.4-10.2)
AST 37 H U/L
(14-36)
Total Protein 5.9 L g/dl
(6.3-8.2)
Albumin 2.9 L g/dl
(3.5-5.0)
Leukocyte Esterase Rfl Trace A
(Negative)
Urine Bacteria (Reflex) Few A
(Negative)
01/09/24 16:37
01/09/24 16:37
Vital Signs
Initial and Last Documented VS:
Initial Vital Signs
Temp Pulse Resp BP Pulse Ox
98.9 F 78 18 108/63 96
01/09/24 16:24 01/09/24 16:24 01/09/24 16:24 01/09/24 16:24 01/09/24 16:24
Last Documented Vital Signs
Temp Pulse Resp BP Pulse Ox
98.9 F 76 18 119/66 95
01/09/24 16:24 01/09/24 22:00 01/09/24 16:24 01/09/24 22:00 01/09/24 22:15
Césarlt;Steve Dietrich DO - Last Filed: 01/09/24 22:31>
Orders/Labs/Results
Orders:
Orders
01/09/24 16:37
CBC/With Diff [Complete Blood Count/With Diff] Urgent
CMP [Comprehensive Metabolic Panel] Urgent
01/09/24 18:41
Straight cath- Treatment ONCE
01/09/24 18:43
US Periph Venous LOWER Ext Alan Urgent
Comment:
Reason For Exam: bilateral leg pain post left hip fracture
01/09/24 19:15
Urinalysis Reflex To Culture Urgent
Date Specimen was Collected: 01/09/24
Time Specimen was Collected: 18:56
Urine Microscopic Reflex Cult Urgent
01/09/24 20:08
CT Head W/o Iv Contrast Urgent
Comment:
Reason For Exam: weakness, difficulty walking
01/09/24 22:24
Hip, Left 2-3 Views [CR Hip - LT w/wo Pel 2-3 Vw*] Urgent
Comment:
Reason For Exam: increased pain
Include a pelvis x-ray?: Yes
Knee, Left 4 or More Views [CR Knee - Left 4 Or More View*] Urgent
Comment:
Reason For Exam: pain, inability to weight bear
Lumbar Spine, 2 or 3 View [CR Lumbar Spine 2 Or 3 Views] Urgent
Comment:
Reason For Exam: pain, left leg weakness
Abnormal Lab Results
01/09/24 01/09/24
16:37 19:15
WBC 16.8 H 10^3/uL
(4.8-10.8)
RBC 3.39 L 10^6/uL
(4.20-5.40)
Hgb 10.8 L g/dL
(12.0-16.0)
Hct 32.3 L %
(37.0-47.0)
MCH 31.9 H pg
(27.0-31.0)
Abs Immat Gran (auto) 0.1 H 10^3/uL
(0-0.05)
Absolute Neuts (auto) 15.2 H 10^3/uL
(1.4-6.5)
Absolute Lymphs (auto) 0.7 L 10^3/uL
(1.2-3.4)
Absolute Monos (auto) 0.9 H 10^3/uL
(0.1-0.6)
Neutrophils % 90.2 H %
(42.2-75.2)
Lymphocytes % 3.9 L %
(20.5-51.1)
Sodium 130 L mmol/L
(135-145)
BUN 22 H mg/dl
(7-17)
Glucose 120 H mg/dl
(70-99)
Calcium 10.6 H mg/dl
(8.4-10.2)
AST 37 H U/L
(14-36)
Total Protein 5.9 L g/dl
(6.3-8.2)
Albumin 2.9 L g/dl
(3.5-5.0)
Leukocyte Esterase Rfl Trace A
(Negative)
Urine Bacteria (Reflex) Few A
(Negative)
01/09/24 16:37
01/09/24 16:37
Vital Signs
Initial and Last Documented VS:
Initial Vital Signs
Temp Pulse Resp BP Pulse Ox
98.9 F 78 18 108/63 96
01/09/24 16:24 01/09/24 16:24 01/09/24 16:24 01/09/24 16:24 01/09/24 16:24
Last Documented Vital Signs
Temp Pulse Resp BP Pulse Ox
98.9 F 76 18 119/66 95
01/09/24 16:24 01/09/24 22:00 01/09/24 16:24 01/09/24 22:00 01/09/24 22:15
<Uriel Cherry, DO - Last Filed: 01/09/24 20:57>
MDM/Problems Addressed
Differential Diagnosis Includes:
Urinary retention, CVA, atrophy
MDM/Problems Addressed:
88-year-old female with weakness, bilateral leg pain, recent left hip hemiarthroplasty. Urinary retention. No back pain, no numbness in the legs. Doubt cauda equina. Concern for possible CVA. CT pending. Admit to hospital for further workup.
Chronic conditions affecting care: Arrhythmia (Atrial fibrillation)
Acute Exacerbation and/or Progression of Chronic Illness: Arrhythmia
<Uriel Cherry, DO - Last Filed: 01/09/24 20:57>
*Radiology
Radiology exam reviewed: radiology read reviewed (Ultrasound bilateral leg no DVT)
*Pulse Oximetry
Patient hypoxic: no
*EKG
Interpreted by ED Provider?: NA
*Interactive Digital Media Specialist Interpretation
Rate: normal
Interpretation: normal
Heart Rate: 77
Rhythm: sinus
*Critical Care Note
Total Time (30-74mins, 75-104mins- exclusive of procedures): Not Applicable
Data Reviewed
Review of Other/Old Records Reveals: Operative Reports (Recent left hip hemiarthroplasty)
Source: patient, records and family
<Uriel Cherry, DO - Last Filed: 01/09/24 20:57>
Patient Management
Social determinants of health affecting care: Living situation and Strong social support
Discussion with other providers: Hospitalist
Escalation/DeEscalation of care consider admission/obs:
Admit indicated
<Shawn Mueller PA-C - Last Filed: 01/09/24 21:51>
Update Note
Update Note:
CT of the head was negative. Assumed care of patient pending a CT. Discussed with emergency room attending saw the patient initially. Will keep patient in the hospital for further evaluation of urinary retention and ambulatory difficulty.
<Steve Dietrich, - Last Filed: 01/09/24 22:31>
Update Note
Update Note:
CT of the head was negative. Assumed care of patient pending a CT. Discussed with emergency room attending saw the patient initially. Will keep patient in the hospital for further evaluation of urinary retention and ambulatory difficulty.
2224: asked to re-evaluate pt by admitting Quyen BARILLAS who was concerned about potential spinal cord compression.
Pt unable to weight bear today. Has been walking with cane. Pt is receiving rehab after left hip ORIF. Pt denies back pain.
VSS
Pt is able to bend at the hip. With leg extended it slowly drops to the bed so muscle strength 3-4/5. Sensation intact. Pt does have dejon-anal sensation.
I do not have suspicion for spinal cord compression but given pain and difficulty holding leg in ext will obatin hip films. PT told Valeire she had knee pain as well so knee x-ray ordered as well. Lumbar spine films ordered as well at request of
hospitalist team. Dr. Cherry's primary concern was pt had a cva causing left leg weakness. If x-rays negative I agree this is the next thing to be ruled out.
ED Attending Note
<Uriel Cherry, DO - Last Filed: 01/09/24 20:57>
-
Portions of this chart may have been created with voice recognition software.� Occasional wrong word or��sound alike� substitutions may have occurred due to the inherent limitations of voice recognition software.
Discharge Plan
Departure
Patient Disposition: Admit
Date of Disposition: 01/09/24
Time of Disposition: 21:51
Admit to: Telemetry
Presentation/result/management discussed w/ accepting MD/DO: Hospitalist
Patient with high blood pressure during this ER visit?: No
Condition: Fair
Discharge Problem:
Weakness, Bilateral leg pain, Acute urinary retention
Prescriptions:
No Action
alendronate [Fosamax] 70 mg Tablet
70 mg PO TH
methotrexate sodium 2.5 mg Tablet
20 mg PO MAE
prednisone 1 mg Tablet
4 mg PO DAILY
folic acid 1 mg Tablet
1 mg PO DAILY
metoprolol succinate 50 mg Tablet Extended Release 24 Hr
50 mg PO DAILY Qty: 30 0RF
Eliquis 2.5 mg Tablet
2.5 mg PO BID Qty: 60 0RF
calcium carbonate-vitamin D3 [Oyster Shell Calcium-Vit D3] 500 mg-5 mcg (200 unit) Tablet
1 tab PO DAILY Qty: 30 0RF
magnesium hydroxide [Milk of Magnesia] 400 mg/5 mL Suspension
2,400 mg PO [id number] PRN (Reason: if no bm by 2nd day)
bisacodyl [Dulcolax (bisacodyl)] 10 mg Suppository
10 mg HI DAILY PRN (Reason: if no bm aftr mom)
Fleet Enema 19-7 gram/118 mL Enema
118 ml HI DAILYPRN PRN (Reason: if no bm aftr dulcolax)
melatonin 5 mg Tablet
5 mg PO HS PRN (Reason: sleep)
tramadol 50 mg tablet
50 mg PO BIDPRN PRN (Reason: severe pain)
acetaminophen [Tylenol Extra Strength] 500 mg tablet
1,000 mg PO Q6HPRN PRN (Reason: mild to moderate pain)
Referrals:
Lashonda Hoover DO [Family Provider] -
Interventions
Interventions:
*Risk Screen - Suicide Last Done: 01/09/24 16:24
*General Assessment Last Done: 01/09/24 16:24
*Neglect/Abuse Screening Last Done: 01/09/24 16:24
*ED COVID-19 Vaccine History Last Done: 01/09/24 16:24
ED-Skin Assessment Last Done: 01/09/24 19:16
ED-Peripheral Vascular Assessment Last Done: 01/09/24 19:16
ED-Musculoskeletal Assessment Last Done: 01/09/24 19:16
[2024-01-09 19:30] LABS: Urine Albumin Negative (Neg - Trace); Urine Bilirubin Negative (Negative); Urine Character Clear (Clear); Urine Color Yellow; Urine Glucose Negative (Negative); Urine Ketone Negative (Negative); Urine Leukocyte Trace (Negative); Urine Nitrite Negative (Negative); Urine Occult Blood Negative (Negative); Urine Urobilinogen Negative (Neg - 1+)
[2024-01-09 19:40] LABS: Urine Bacteria Few (Negative); Urine Squamous Cell 0-2 /LPF (Few); Urine White Cell 0-2 /HPF (0-5)
--- NOTE | 2024-01-09 22:58 | HPS.HSE ---
Addendum entered and electronically signed by Deng Madera DO 01/09/24 23:55:
Patient seen and examined independently. Agree with findings and plan as set forth by Quyen Sweet PA-C.
Patient is an 88y F with PMH significant for A-Fib and recent fall with L hip fracture who presents to ED from SNF complaining of 'unable to get out of bed'. Patient underwent L JASWINDER on 12/19 following a fall and L hip fracture. She was discharged
to SNF where she was recovering well. She changed from a walker to a cane 2-3 days ago. The following morning she was unable to get out of bed. Patient states that she had pain 'all over'. She declined PT yesterday and today and was sent to the
ED for further evaluation.
In the ED, patient was straight cathed for 500cc. She states that she last moved her bowels several days ago.
Ass:
Ambulatory Dysfunction
LLE Pain
s/p R JASWINDER 12/19/23
Constipation
Urinary Retention
Paroxysmal Atrial Fibrillation
Rheumatoid Arthritis
Hypercalcemia
Plan:
Admit for further evaluation and treatment.
PT / OT evaluations.
Ortho eval given increased pain / decreased mobility.
IVF overnight.
Check iPTH - patient has apparent chronic hypercalcemia.
Bladder scan protocol for retention and straight cath as needed.
Bowel regimen for constipation.
Follow for clinical improvement.
Original Note:
Family Physician
-
Family Physician: Adam Hoover DO
Chief Complaint
-
Inability to ambulate
History of Present Illness
Patient is an 88 y/o female past medical history of paroxysmal atrial fibrillation and recent fall resulting in a left hip fracture requiring hemiarthroplasty who presents with inability to ambulate. Patient reports she is currently at [facility]
for rehab. She reports she was walking with a cane two day ago, but yesterday developed worsening pain in her legs and today she was unable to walk. She admits to tingling in the left foot. She also reports difficulty urinating which started also
about two days ago. She notes her urine just 'doesnt want to come out'. In the emergency department staff catheterized her for a urine sample and found her to have urinary retention with 500cc of urine in her bladder. She denies dysuria.
Medical History
Past Medical History
Past Medical History: Reports Other
Additional Past Medical History:
Paroxysmal Atrial Fibrillation
Rheumatoid Arthritis
Past Surgical History: Reports Other
Additional Past Surgical History:
Left Hip Hemiarthroplasty
Hysterectomy
Social History
Tobacco: Non-smoker
Alcohol: Occasional
Drug: None
Personal:
Living: Alone
Family History
Family History: Not pertinent
Allergies / Home Medications
Allergies reflects when Allergies were last updated in [employer].
Home Medications with original date entered in [employer]
Allergy/Medication List:
Allergies
Allergy/AdvReac Type Severity Reaction Status Date / Time
No Known Allergies Allergy Verified 01/09/24 16:29
Home Medications
alendronate 70 mg tablet (Fosamax) 70 mg PO TH 12/18/23
folic acid 1 mg tablet 1 mg PO DAILY 12/18/23
methotrexate sodium 2.5 mg tablet 20 mg PO MAE 12/18/23
prednisone 1 mg tablet 4 mg PO DAILY 12/18/23
apixaban 2.5 mg tablet (Eliquis) 2.5 mg PO BID #60 tabs 12/21/23
calcium carbonate 500 mg-vitamin D3 5 mcg (200 unit) tablet (Oyster Shell Calcium-Vitamin D3) 1 tab PO DAILY #30 tabs 12/21/23
metoprolol succinate 50 mg tablet,extended release 24 hr 50 mg PO DAILY #30 tabs 12/21/23
acetaminophen 500 mg tablet (Tylenol Extra Strength) 1,000 mg PO Q6HPRN PRN mild to moderate pain 01/09/24
bisacodyl 10 mg rectal suppository (Dulcolax (bisacodyl)) 10 mg WA DAILY PRN if no bm aftr mom 01/09/24
magnesium hydroxide 400 mg/5 mL oral suspension (Milk of Magnesia) 2,400 mg PO [id number] PRN if no bm by 2nd day 01/09/24
melatonin 5 mg tablet 5 mg PO HS PRN sleep 01/09/24
sodium phosphates 19 gram-7 gram/118 mL enema (Fleet Enema) 118 ml WA DAILYPRN PRN if no bm aftr dulcolax 01/09/24
tramadol 50 mg tablet 50 mg PO BIDPRN PRN severe pain 01/09/24
Review of Systems
-
A 12 point ROS was completed and negative except as noted: Yes
Constitutional: Denies Fever
Respiratory: Denies Cough or Trouble Breathing
Cardiac: Denies Chest Pain or Palpitations
Abdomen/GI: Reports Constipated; Denies Vomiting or Diarrhea
: Reports Frequency; Denies Dysuria
Musculoskeletal: Reports See HPI
Physical Exam
Vital Signs
Vital Signs
Temp Pulse Resp BP Pulse Ox
98.9 F 76 18 119/66 95
01/09/24 16:24 01/09/24 22:00 01/09/24 16:24 01/09/24 22:00 01/09/24 22:15
Physical Exam
General: Comfortable and Conversant
HEENT: Anicteric and Moist mucous membranes
Respiratory: Clear and Non Labored Respirations
Cardiac: S1/S2 and Regular Rhythm
GI: Soft, Non Tender and Non Distended
Rectal: Deferred by Provider
Musculoskeletal: No Clubbing, No Cyanosis and No Edema
Skin: Warm and Dry
Neuro: Awake, Alert, Oriented and Other (Limited range of motion and weakness left knee and hip)
Laboratory Results
-
01/09/24 16:37
01/09/24 16:37
Laboratory Results
Total Bilirubin 0.8 mg/dl (0.2-1.3) 01/09/24 16:37
AST 37 U/L (14-36) H 01/09/24 16:37
ALT 23 U/L (0-35) 01/09/24 16:37
Alkaline Phosphatase 74 U/L (38-126) 01/09/24 16:37
Data Reviewed
-
CT Scan: Report Reviewed by me
Lab Data: Labs Reviewed by me
Impression/Plan
-
Left Lower Extremity Pain following recent Left Hip Hemiarthroplasty on Dec 19
-Consult PT/OT
-Consult Ortho
-Await official x-ray reports
Urinary Retention and Constipation
-Patient straight cath in ED for 500cc
-Monitor bladder scans
-Give Milk and Molasses enema this evening
-Start Miralax BID
Paroxysmal Atrial Fibrillation
-Continue Eliquis for anticoagulation
-Continue metoprolol for rate/rhythm control
Rheumatoid Arthritis
-Continue low dose prednisone as prior to admission
-Patient maintained on methotrexate as outpatient
DVT proph: Eliquis
Code Status: Full Code
[2024-01-10] VITALS (11 sets, daily range): BP systolic 97–126; BP diastolic 53–78; BMI 25.0
[2024-01-10] MEDS: ULTRAM 50 MG PO (00:26)
[2024-01-10] MEDS: NSS 1000 IV (02:11)
[2024-01-10 05:19] LABS: Hematocrit 31.3 % (37.0-47.0); Hemoglobin 10.7 g/dL (12.0-16.0); Mean Corp Hgb Conc. 34.2 g/dL (33.0-37.0); Mean Corpuscular Hgb 32.1 pg (27.0-31.0); Mean Platelet Volume 9.3 fL (7.4-10.4); Platelet Count 320 10^3/uL (130-400); Red Blood Cell Count 3.33 10^6/uL (4.20-5.40); Red Cell Dist. Width 13.4 % (11.5-14.5); White Blood Cell Count 13.6 10^3/uL (4.8-10.8)
[2024-01-10 05:20] LABS: Ionized Calcium 1.34 mMOL/L (1.15-1.33)
[2024-01-10 06:08] LABS: Blood Urea Nitrogen 21 mg/dl (7-17); Calcium 10.1 mg/dl (8.4-10.2); Carbon Dioxide 26 mmol/L (22-30); Chloride 101 mmol/L (98-107); Estimated Creatinine Clearance 50 ml/min; Glucose 100 mg/dl (70-99); Potassium 4.1 mmol/L (3.5-5.1); Sodium 132 mmol/L (135-145); eGFR > 60.00
[2024-01-10 06:22] LABS: Vitamin D, 25-OH*** 59.4 ng/mL (30-80)
[2024-01-10 06:26] LABS: Intact PTH 74.5 pg/ml (13.6-85.8)
--- NOTE | 2024-01-10 07:28 | W.PN.UPDATE ---
Update Note
Progress Note Update
Full consult dictated. 88 yo female admitted 3 weeks after left hip hemiarthroplasty for fracture. Was reportedly doing well until yesterday and transferred to . No additional falls. No fevers. Difficulty with ambulation after progressing at
rehab. She was unable to urinate and required an enema. Xrays of left hip unremarkable. Lumbar spine xrays with severe degenerative changes. Physical exam with left leg weakness. Difficulty with SLR. Weak EHL strength testing and ankle
dorsiflexion. Sensation intact to light touch. No back pain to palpation. No saddle anesthesia. Incision of left hip clean,dry and intact. No groin pain with ROM of the hip. Labs: UA with few bacteria. WBC elevated on admission at 16.8.
Recommend Urine Culture. Recommend Lumbar Spine MRI. Will follow. Will require spine consult pending results of MRI.
--- NOTE | 2024-01-10 08:08 | W.PN.UPDATE ---
Update Note
Progress Note Update
Full consult note dictated by Dr. Cook. Weakness with dorsiflexion and EHL are new finding since her discharge from .
--Order for lumbar spine MRI placed.
--Recommend urine culture.
--- NOTE | 2024-01-10 08:14 | W.PN.HOSP.TC ---
Today's Communication/Plan
-
see bold
Assessment / Plan
Assessment / Plan
HPI: 88y F with PMH significant for A-Fib and recent fall with L hip fracture who presents to ED from SNF complaining of 'unable to get out of bed'.� Patient underwent L JASWINDER on 12/19 following a fall and L hip fracture.� She was discharged to SNF
where she was recovering well.� She changed from a walker to a cane 2-3 days ago.� The following morning she was unable to get out of bed.� Patient states that she had pain 'all over'.� She declined PT yesterday and today and was sent to the ED for
further evaluation.�
In the ED, patient was straight cathed for 500cc.� She states that she last moved her bowels several days ago.
Left Lower Extremity Pain following recent Left Hip Hemiarthroplasty on Dec 19
-Appreciate orthopedic surgery input, lumbar spine MRI ordered
-PT/OT, pain control
Leukocytosis
-Patient is afebrile, there is no fever
-Recheck urine analysis with urine culture
Urinary Retention
-S/p straight cath in ED for 500cc
-Monitor bladder scans
Constipation
-S/p Milk and Molasses enema 01/09
-Started Miralax BID, add senna BID
Paroxysmal Atrial Fibrillation
-Continue Eliquis for anticoagulation
-Continue metoprolol for rate/rhythm control
Rheumatoid Arthritis
-Continue low dose prednisone as prior to admission
-Patient maintained on methotrexate as outpatient
DVT proph: Eliquis
Total time spent to see the patient on the floor, examine the patient, review data and lab results, discuss treatment plan with patient, nursing staff around 51 minutes.
Code Status: Full Code
Physical Exam
General: Frail, elderly, no acute distress
HEENT: Normocephalic, Atraumatic, EOMI, MMM
Respiratory: Clear to Auscultation bilaterally
Cardiac: Normal S1/S2, Regular Rate and Rhythm
GI: Soft, Nontender, Nondistended, Normal Bowel Sounds
Extremities: No Clubbing, Cyanosis, or Edema
Musculoskeletal:
Left hip incision healing
Psych: Calm, Cooperative
Anticipated Discharge: 24 - 48 hours
Subjective/Interval History
-
Date of Service: January 10, 2024
Patient denies dysuria. She complains of left foot pain. No fever. No chest pain, no shortness of breath.
Objective Data
-
Labs:
Laboratory Results
01/10/24
05:10
WBC 13.6 H
Hgb 10.7 L
Hct 31.3 L
Plt Count 320
Sodium 132 L
Potassium 4.1
Chloride 101
Carbon Dioxide 26
BUN 21 H
Creatinine 0.7
Glucose 100 H
Calcium 10.1
Vital Signs:
Vital Signs
Temp Pulse Resp BP Pulse Ox
98.9 F 74 18 108/78 94
01/09/24 16:24 01/10/24 00:00 01/09/24 16:24 01/10/24 04:00 01/10/24 03:38
[2024-01-10] MEDS: DELTASONE 4 MG PO (10:17)
[2024-01-10] MEDS: TOPROL XL 50 MG PO (10:17)
[2024-01-10] MEDS: ELIQUIS 2.5 MG PO ×2 (10:18→19:46)
[2024-01-10] MEDS: MIRALAX 17 GRAMS PO ×2 (10:18→19:46)
[2024-01-10] MEDS: FOLVITE 1 MG PO (10:18)
--- NOTE | 2024-01-10 10:49 | W.PN.UPDATE ---
Update Note
Progress Note Update
Patient was seen in the emergency room and examined. no recent falls. She is being admitted for urinary retention. She was doing very well in her recovery and rehab. She is 3 weeks postop from left hip hemiarthroplasty. She was slightly confused
with directions during the exam. I spoke with her daughter Марина via telephone today. She said 3 days ago she had a cute exacerbation of back pain that radiated to the right lower extremity.She does have a history of significant back arthritis.
On physical exam:Patient is able to actively dorsiflex her ankle and plantarflex her ankle against resistance. She is able to actively extend her great toe against resistance. Good Passive range of motion of the left hip without pain. No erythema
or ecchymosis of the left hip. Incision site appears well-healed. Negative logroll.
X-rays performed of the pelvis, left hip, lumbar spine show the prosthesis to be intact. No evidence of dislocation. No periprosthetic fractures. No acute fractures. Significant DDD, degenerative scoliosis, and DJD of the lumbar spine.
Plan: Agree with lumbar spine MRI and consultation with spine specialists. I will see her as an outpatient for follow-up as previously instructed for her hemiarthroplasty of left hip. She may weight-bear as tolerated on left lower extremity as
previously instructed with her walker.
I addressed all questions from Марина her daughter via cell phone And left a message for her other daughter Breann as to findings and treatment plan. Dr Albarado is director of strategic communications this weekend and I have made him aware as I will be out of town/country x 1wk.
--- NOTE | 2024-01-10 14:36 | CM ---
CM reviewed medical records. CM met with patient's daughter in room. Patient's daughter stated that patient was at [facility] with plan for respite in personal Care at [facility]. Patient daughter would be agreeable to continued SNF stay at
[facility] if needed. CM sent referral via [facility] to [facility] SNF. CM pending PT evaluation.
PLAN: SNF
[2024-01-10 15:00] LABS: Urine Albumin Trace (Neg - Trace); Urine Bilirubin Negative (Negative); Urine Character Clear (Clear); Urine Color Yellow; Urine Glucose Negative (Negative); Urine Ketone Negative (Negative); Urine Leukocyte Trace (Negative); Urine Nitrite Negative (Negative); Urine Occult Blood Negative (Negative); Urine Specific Gravity 1.015 (<1.030); Urine Urobilinogen Negative (Neg - 1+); Urine pH 6.5 (5.0-9.0)
[2024-01-10 15:16] LABS: Urine Amorphous Seen; Urine Mucus Moderate
[2024-01-10 15:18] LABS: Urine Red Blood Cell 0-2 /HPF (0-2)
[2024-01-10] MEDS: TYLENOL PO (18:37)
[2024-01-10] MEDS: SENOKOT-S 2 TABLET PO (19:46)
[2024-01-10] MEDS: TYLENOL 1000 MG PO (22:02)
[2024-01-11 06:00] VITALS: BMI 22.4
[2024-01-11 06:56] LABS: % Basophils 0.6 % (0-2); % Eosinophils 1.8 % (0-6); % Immature Granulocytes 0.8 % (0-0.5); % Lymphocytes 12.9 % (20.5-51.1); % Neutrophils 75.9 % (42.2-75.2); Absolute Basophils 0.1 10^3/uL (0-0.2); Absolute Eosinophils 0.2 10^3/uL (0-0.7); Absolute Immature Granulocytes 0.1 10^3/uL (0-0.05); Absolute Lymphocytes 1.4 10^3/uL (1.2-3.4); Absolute Monocytes 0.9 10^3/uL (0.1-0.6); Absolute Neutrophils 8.1 10^3/uL (1.4-6.5); Mean Corp Hgb Conc. 33.3 g/dL (33.0-37.0); Mean Corpuscular Volume 95.9 fL (81.0-99.0); Mean Platelet Volume 9.2 fL (7.4-10.4); Nucleated Red Blood Cells % 0 %; Platelet Count 374 10^3/uL (130-400); Red Blood Cell Count 3.44 10^6/uL (4.20-5.40); Red Cell Dist. Width 13.4 % (11.5-14.5); White Blood Cell Count 10.6 10^3/uL (4.8-10.8)
[2024-01-11 07:30] VITALS: BP 111/68
[2024-01-11 07:38] LABS: Procalcitonin 0.28 ng/ml (0.0-0.25)
--- NOTE | 2024-01-11 07:45 | W.PN.UPDATE ---
Update Note
Progress Note Update
Patient sleeping upon my arrival this morning. Easily woken up. Reports minimal discomfort in her left hip and states she feels better than yesterday.
Left hip incision completely healed. Gentle ROM of the hip with mild discomfort about lateral hip.
4/5 resisted dorsiflexion and plantar flexion. 4/5 resisted EHL.
MRI of the lumbar spine from [facility] on 01/10/2024 shows evidence of:
1. Chronic advanced generative changes of the lumbar spine including DDD with multilevel disc bulges and facet arthrosis superimposed upon a moderate lumbar levoscoliosis.
2. No significant spinal canal stenosis.
3. 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
4. Signal changes and enhancement centered at the L3 and L4-5 spinous processes, favored to be inflammatory. Infectious interspinous bursitis would be less likely. No MRI evidence for an epidural abscess or discitis-osteomyelitis
MRI images were reviewed by Dr. Albarado and case discussed. At this time, there is no acute surgical intervention. There are chronic degenerative changes, which may be further discussed/treated on an outpatient basis. She may do PT as tolerated
from a medical standpoint. She will plan to f/u outpatient as scheduled for her left hip post op with Dr. Jackson.
[2024-01-11 07:51] LABS: Blood Urea Nitrogen 22 mg/dl (7-17); Calcium 10.2 mg/dl (8.4-10.2); Carbon Dioxide 27 mmol/L (22-30); Chloride 104 mmol/L (98-107); Estimated Creatinine Clearance 44 ml/min; Glucose 104 mg/dl (70-99); Potassium 4.1 mmol/L (3.5-5.1); Sodium 137 mmol/L (135-145); eGFR > 60.00
--- NOTE | 2024-01-11 09:16 | W.PN.HOSP.TC ---
Today's Communication/Plan
-
see bold
Assessment / Plan
Assessment / Plan
HPI: 88y F with PMH significant for A-Fib and recent fall with L hip fracture who presents to ED from SNF complaining of 'unable to get out of bed'.� Patient underwent L JASWINDER on 12/19 following a fall and L hip fracture.� She was discharged to SNF
where she was recovering well.� She changed from a walker to a cane 2-3 days ago.� The following morning she was unable to get out of bed.� Patient states that she had pain 'all over'.� She declined PT yesterday and today and was sent to the ED for
further evaluation.�
In the ED, patient was straight cathed for 500cc.� She states that she last moved her bowels several days ago.
Left Lower Extremity Pain following recent Left Hip Hemiarthroplasty on Dec 19
-Appreciate orthopedic surgery input, lumbar spine shows
1. Chronic advanced degenerative changes of the lumbar spine including degenerative disc disease with multilevel disc bulges and facet arthrosis superimposed upon a moderate lumbar levoscoliosis.
2. No significant spinal canal stenosis.
3. 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
4. 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 An infectious interspinous bursitis would be a less likely consideration. No MRI evidence for an epidural
abscess or discitis-osteomyelitis.
-PT/OT, pain control, PT rec return to SNF upon dc
Left foot pain
-suspect plantar fascitis
-Increase home prednisone to 40 mg daily x 5 days, then decrease back
Leukocytosis
-She is on chronic prednisone
-Patient is afebrile
-Will cover for poss UTI w/ rocephin d1 until urine cx returns, PCT 0.29
Urinary Retention
-S/p straight cath in ED for 500cc & again overnight on 01/10
-Monitor bladder scans
Constipation
-S/p Milk and Molasses enema 01/09
-Started Miralax BID, add senna BID, pt having BM's now
Paroxysmal Atrial Fibrillation
-Continue Eliquis for anticoagulation
-Continue metoprolol for rate/rhythm control
Rheumatoid Arthritis
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
-Patient maintained on methotrexate as outpatient
DVT proph: Eliquis
Total time spent to see the patient on the floor, examine the patient, review data and lab results, discuss treatment plan with patient, nursing staff around 52 minutes.
Code Status: Full Code
Updated dtr at bedside
Physical Exam
General: Frail, elderly, no acute distress
HEENT: Normocephalic, Atraumatic, EOMI, MMM
Respiratory: Clear to Auscultation bilaterally
Cardiac: Normal S1/S2, Regular Rate and Rhythm
GI: Soft, Nontender, Nondistended, Normal Bowel Sounds
Extremities: No Clubbing, Cyanosis, or Edema
Musculoskeletal:
Left hip incision healing
Left foot is diffusely ttp
Psych: Calm, Cooperative
Anticipated Discharge: 24 - 48 hours
Subjective/Interval History
-
Date of Service: January 11, 2024
Left foot pain improved. She was able to ambulate with PT. No dysuria. No fever.
Objective Data
-
Labs:
Laboratory Results
01/11/24
06:47
WBC 10.6
Hgb 11.0 L
Hct 33.0 L
Plt Count 374
Sodium 137
Potassium 4.1
Chloride 104
Carbon Dioxide 27
BUN 22 H
Creatinine 0.8
Glucose 104 H
Calcium 10.2
Vital Signs:
Vital Signs
Temp Pulse Resp BP Pulse Ox
97.5 F 113 19 111/68 97
01/11/24 07:30 01/11/24 07:30 01/11/24 07:30 01/11/24 07:30 01/11/24 07:30
I&O
01/10/24 01/11/24 01/12/24
06:59 06:59 06:59
Intake Total 480 / 480
Output Total 1600 / 1600
Balance -1120 / -1120
[2024-01-11] MEDS: TOPROL XL PO (09:45)
[2024-01-11] MEDS: MIRALAX 17 GRAMS PO ×2 (09:49→20:42)
[2024-01-11] MEDS: SENOKOT-S 2 TABLET PO ×2 (09:50→20:42)
[2024-01-11] MEDS: TYLENOL 1000 MG PO ×3 (09:50→21:14)
[2024-01-11] MEDS: FOLVITE 1 MG PO (09:51)
[2024-01-11] MEDS: DELTASONE 4 MG PO (09:51)
[2024-01-11] MEDS: ELIQUIS 2.5 MG PO ×2 (09:51→20:42)
[2024-01-11 11:08] VITALS: BP 108/74; PULSE 94; O2SAT 94
[2024-01-11 11:10] VITALS: BP 108/74; PULSE 94; O2SAT 94
[2024-01-11] MEDS: ROCEPHIN 1000 MG IV (11:22)
[2024-01-11] MEDS: STERILE WATER FOR INJECTION 10 ML IV (11:24)
[2024-01-11 15:00] VITALS: BP 121/85
--- NOTE | 2024-01-11 15:12 | W.PN.UPDATE ---
Update Note
Progress Note Update
Patient was seen and examined. She is doing very well today. She did participate in physical therapy and was able to ambulate. Upon further questioning, just prior to her symptoms occurring over the weekend she had switched from using a walker to
a cane. This may have prompted some radicular symptoms from her back creating weakness and pain. Nonetheless, she is much improved since admission.
Physical exam: Good range of motion of right hip without pain. Negative logroll. Mild pain with flexion internal rotation of the hip. Negative logroll. Complete active range of motion of the ankle with dorsi flexion bilaterally motor strength
5/5. EHL strength is 5/5. Sensory intact.
Plan:She is to have physical therapy and Occupational Therapy. She is to take her medicines for her rheumatoid arthritis or tylenol for any pain or discomfort. She is to maintain hip precautions. All questions were answered. It appears that her
weakness particularly with dorsiflexion of ankles Was transient and has subsequently resolved. I will see her in 2 to 3 weeks as an outpatient for follow-up regarding her hemiarthroplasty of her left hip. She will follow-up with Dr. Albarado For her
spine as an outpatient as well. Please contact us if any further orthopedic intervention is needed. Dr. Roe will be on-call for practice this weekend and is aware.
[2024-01-11] MEDS: DELTASONE 40 MG PO (16:05)
[2024-01-11] MEDS: TOPROL XL 25 MG PO (16:06)
--- NOTE | 2024-01-11 20:19 | W.PN.UPDATE ---
Update Note
Progress Note Update
Patient is an 88-year-old female who presented to the hospital with a chief complaint of difficulty with ambulation after progressing in rehab. She recently underwent a left hip hemiarthroplasty 3 weeks ago for fracture. She was also apparently
unable to urinate and required an enema. She also had difficulty with straight leg raise and weak ankle dorsiflexion and EHL strength. There is concern for a spinal etiology being the source of her weakness. She was seen and examined at the [facility] yesterday. On my exam yesterday, she did appear to have 4/5 weakness in her dorsiflexion and EHL bilaterally. She also had diminished strength at left hip flexion but this is likely due to her recent left hip hemiarthroplasty. MRI of the
lumbar spine was reviewed. Patient has multilevel degenerative disc disease in her lumbar spine. She has some right-sided subarticular stenosis at L1-L2 and L2-L3 due to her degenerative scoliosis and facet arthropathy. She also has foraminal
stenosis at various levels in her lumbar spine. However, there is no other region of compression in her lumbar spine that would explain the acute weakness she was experiencing. As such, there is no spine surgical indication at this time.
Recommend continued physical therapy for mobility and strengthening. May consider neurology consult if her strength is not improving.
[2024-01-11 23:11] VITALS: BP 119/67
[2024-01-12 06:00] VITALS: BMI 22.2
[2024-01-12 08:00] VITALS: BP 122/60
--- NOTE | 2024-01-12 08:57 | W.PN.HOSP.TC ---
Addendum entered and electronically signed by Thiago Guevara MD 01/13/24 14:59:
Patient also had hyponatremia, which resolved upon discharge.
Original Note:
Today's Communication/Plan
-
Discharge to short-term rehab today
Assessment / Plan
Assessment / Plan
HPI: 88y F with PMH significant for A-Fib and recent fall with L hip fracture who presents to ED from SNF complaining of 'unable to get out of bed'.� Patient underwent L JASWINDER on 12/19 following a fall and L hip fracture.� She was discharged to SNF
where she was recovering well.� She changed from a walker to a cane 2-3 days ago.� The following morning she was unable to get out of bed.� Patient states that she had pain 'all over'.� She declined PT yesterday and today and was sent to the ED for
further evaluation.�
In the ED, patient was straight cathed for 500cc.� She states that she last moved her bowels several days ago.
Left Lower Extremity Pain following recent Left Hip Hemiarthroplasty on Dec 19
-Appreciate orthopedic surgery input, lumbar spine shows
1. Chronic advanced degenerative changes of the lumbar spine including degenerative disc disease with multilevel disc bulges and facet arthrosis superimposed upon a moderate lumbar levoscoliosis.
2. No significant spinal canal stenosis.
3. 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
4. 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 An infectious interspinous bursitis would be a less likely consideration. No MRI evidence for an epidural
abscess or discitis-osteomyelitis.
-PT/OT, pain control, PT rec return to SNF
-Medically stable for discharge back to SNF
Left foot pain
-Suspect plantar fascitis
-Pain resolved on increased dose of prednisone to 40 mg daily x 5 days, then decrease back to previous dose of 4 mg daily
Leukocytosis
-She is on chronic prednisone
-Patient is afebrile
-Urine cultures negative, stop Rocephin
Urinary Retention
-S/p straight cath in ED for 500cc & again overnight on 01/10
-Patient now voiding, with bladder scans less than 400 mls, monitor bladder scans
Constipation
-S/p Milk and Molasses enema 01/09
-Patient now having bowel movements, continue Miralax BID, add senna BID upon discharge
Paroxysmal Atrial Fibrillation
-Continue Eliquis for anticoagulation
-Continue metoprolol for rate/rhythm control
Rheumatoid Arthritis
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
-Patient maintained on methotrexate as outpatient
DVT proph: Eliquis
Code Status: Full Code
Updated dtr on phone 01/11
Physical Exam
General: Frail, elderly, no acute distress
HEENT: Normocephalic, Atraumatic, EOMI, MMM
Respiratory: Clear to Auscultation bilaterally
Cardiac: Normal S1/S2, Regular Rate and Rhythm
GI: Soft, Nontender, Nondistended, Normal Bowel Sounds
Extremities: No Clubbing, Cyanosis, or Edema
Musculoskeletal:
Left hip incision healing
Left foot is nontender
Psych: Calm, Cooperative
Anticipated Discharge: Today
Subjective/Interval History
-
Date of Service: January 12, 2024
Patient having bowel movements. Bladder scan showing postvoid residual in the 300s.
Her left foot pain has resolved.
Objective Data
-
Labs:
Laboratory Results
01/12/24
07:22
Sodium Pending
Potassium Pending
Chloride Pending
Carbon Dioxide Pending
BUN Pending
Creatinine Pending
Glucose Pending
Calcium Pending
Vital Signs:
Vital Signs
Temp Pulse Resp BP Pulse Ox
97.7 F 80 16 122/60 97
01/12/24 08:00 01/12/24 08:00 01/12/24 08:00 01/12/24 08:00 01/12/24 08:00
I&O
01/11/24 01/12/24 01/13/24
06:59 06:59 06:59
Intake Total 480 / 480
Output Total 1600 / 1600 850 / 850
Balance -1120 / -1120 -850 / -850
[2024-01-12 09:34] LABS: Blood Urea Nitrogen 24 mg/dl (7-17); Calcium 10.1 mg/dl (8.4-10.2); Carbon Dioxide 27 mmol/L (22-30); Chloride 105 mmol/L (98-107); Estimated Creatinine Clearance 44 ml/min; Glucose 111 mg/dl (70-99); Potassium 5.1 mmol/L (3.5-5.1); Sodium 136 mmol/L (135-145); eGFR > 60.00
[2024-01-12] MEDS: MIRALAX 17 GRAMS PO (10:06)
[2024-01-12] MEDS: SENOKOT-S 2 TABLET PO (10:06)
[2024-01-12] MEDS: DELTASONE 40 MG PO (10:07)
[2024-01-12] MEDS: TYLENOL 1000 MG PO ×2 (10:07→17:05)
[2024-01-12] MEDS: ELIQUIS 2.5 MG PO (10:08)
[2024-01-12] MEDS: STERILE WATER FOR INJECTION 10 ML IV (10:08)
[2024-01-12] MEDS: FOLVITE 1 MG PO (10:08)
[2024-01-12] MEDS: TOPROL XL 25 MG PO (10:08)
[2024-01-12] MEDS: ROCEPHIN 1000 MG IV (10:09)
[2024-01-12 12:53] LABS: COVID-19 Antigen Negative (Negative)
--- NOTE | 2024-01-12 13:18 | CM ---
DR Guevara indicted pt ready for discharge.
Contacted [facility] she texted she had a bed.
Covid test negative done upon requested.
Spoke with Joaquin lerma she agreed with [facility] and ambulance requested.
Medical nec form completed.
IMM emailed to joaquin at [email or web address] as requested.
[facility]
report [phone]
fax [phone]
PLAN To [facility] via ambulance
--- NOTE | 2024-01-12 13:28 | W.DCSUMMARY ---
Discharge Summary
Discharge Data
Date of Admission: 01/09/24
Date of Discharge: 01/12/24
-
Pending Results: No
Hospital Course
Discharge diagnosis:
Acute left foot pain, suspect plantar fasciitis
Recent left hip hemiarthroplasty
Leukocytosis
Acute urinary retention
Constipation
Hyponatremia
Paroxysmal atrial fibrillation on Eliquis
Rheumatoid arthritis on chronic prednisone
Consults: Orthopedic surgery
Lumbar spine MRI:
1. Chronic advanced degenerative changes of the lumbar spine including degenerative disc disease with multilevel disc bulges and facet arthrosis superimposed upon a moderate lumbar levoscoliosis.
2. No significant spinal canal stenosis.
3. 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
4. 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 An infectious interspinous bursitis would be a less likely consideration. No MRI evidence for an epidural
abscess or discitis-osteomyelitis.
Hospital course:
88-year-old female with a past medical history of paroxysmal atrial fibrillation on Eliquis, rheumatoid arthritis on chronic prednisone, and recent left hip hemiarthroplasty presented with acute left foot pain and worsening weakness from rehab.
Patient was seen in conjunction with orthopedic surgery, her left hip incision is healing well. Lumbar spine MRI does demonstrate degenerative disc disease, with bilateral neuroforaminal stenosis.
Patient complains of pain on her left foot, at the medial plantar aspect. It was tender to palpation. Suspect she has plantar fasciitis. She is on prednisone 4 mg daily for rheumatoid arthritis. Her prednisone dose was increased to 40 mg daily
for 2 days. Her left foot pain resolved.
Patient also was noted to have acute urinary retention and constipation. She received an aggressive bowel regimen, and was having multiple bowel movements.
Patient required straight cath for acute urinary retention in the ER. She was monitored with bladder scans to check her postvoid residual. She did require another straight cath. After that her urinary retention improved. Postvoid residuals were
less than 400.
She is medically stable for discharge back to short-term rehab. She will be discharged on a bowel regimen, and a prednisone taper. She needs to follow-up with her primary care doctor 1 week after she leaves rehab, and orthopedic surgery in the
office in 2 weeks.
Disposition: Short-term rehab
Discharge plan: Required 41-minute
Discharge Plan
-
Patient Disposition: [facility]
Discharge Diagnosis/Procedures: Acute left foot pain possibly due to plantar fasciitis, recent healing left hip fracture status post surgery, constipation, urinary retention, paroxysmal atrial fibrillation
Condition: Good
Diet: Low Fat and Low Cholesterol
Activity: As tolerated
Activity Restrictions/Additional Instructions:
Please bladder scan patient daily after she voids to make sure she is not retaining urine.
Please take prednisone taper as follows:
30 mg daily for 1 day, then
20 mg daily for 1 day, then
10 mg daily for 1 day, then
Resume previous 4 mg daily on 01/16/24.
Your blood pressure in the hospital was on the low side. Your metoprolol succinate was reduced from 50 mg daily to 25 mg daily.
Please follow-up with orthopedic surgery in the office in 2 weeks, as well as her primary care doctor 1 week after you leave rehab.
Referrals:
Abilio Albarado DO [Active] - in two weeks
Lashonda Hoover DO [Family Provider] - in one week
Prescriptions:
New
polyethylene glycol 3350 [HealthyLax] 17 gram Powder In Packet
17 g PO BID Qty: 0 0RF
sennosides-docusate sodium [Stool Softener-Stimulant Laxat] 8.6-50 mg Tablet
2 tab PO BID Qty: 30 0RF
metoprolol succinate 25 mg Tablet Extended Release 24 Hr
25 mg PO DAILY Qty: 0 0RF
prednisone 10 mg tablet
See Rx Instructions .ROUTE .COMPLEX Qty: 14 0RF
Rx Instructions:
30 mg x1 d, then
20 mg x1 d, then
10 mg x1 d, then resume previous dose 4 mg daily
Continued
alendronate [Fosamax] 70 mg Tablet
70 mg PO TH
methotrexate sodium 2.5 mg Tablet
20 mg PO MAE
folic acid 1 mg Tablet
1 mg PO DAILY
Eliquis 2.5 mg Tablet
2.5 mg PO BID Qty: 60 0RF
magnesium hydroxide [Milk of Magnesia] 400 mg/5 mL Suspension
2,400 mg PO [id number] PRN (Reason: if no bm by 2nd day)
bisacodyl [Dulcolax (bisacodyl)] 10 mg Suppository
10 mg NV DAILY PRN (Reason: if no bm after MOM )
Fleet Enema 19-7 gram/118 mL Enema
118 ml NV DAILYPRN PRN (Reason: if no bm after dulcolax)
melatonin 5 mg Tablet
5 mg PO HS PRN (Reason: sleep)
tramadol 50 mg tablet
50 mg PO BIDPRN PRN (Reason: severe pain)
acetaminophen [Tylenol Extra Strength] 500 mg tablet
1,000 mg PO Q6HPRN PRN (Reason: mild to moderate pain)
calcium carbonate-vitamin D3 [Oyster Shell Calcium-Vit D3] 500 mg-5 mcg (200 unit) tablet
1 tab PO DAILY
Held
prednisone 1 mg Tablet
4 mg PO DAILY
Hold Instructions: Resume on 01/16/24.
Discontinued
metoprolol succinate 50 mg Tablet Extended Release 24 Hr
50 mg PO DAILY Qty: 30 0RF
Discharge Orders:
Discharge Patient (As Directed); Ordered 01/12/24
Ordered By: Thiago Guevara
Discharge Date and Time
Discharge Date/Time: 01/12/24 19:35
--- NOTE | 2024-01-12 14:20 | PN.CDI ---
CDI
- -
CDI:
Physician Documentation Request
Admit Date: 01/09/24 23:50
Dear Doctor Do,
Patient admitted for eval of Left Lower Extremity Pain following recent Left Hip Hemiarthroplasty on Dec 19 and urinary retention.
Sodium resulted as follows
01/09/24 01/10/24 01/11/24
16:37 05:10 06:47
Sodium 130 L 132 L 137
01/12/24
07:22
Sodium 136
Could you please provide a diagnosis that supports the above lab abnormalities and additional evaluation/ monitoring:
Hyponatremia
Abnormal lab value clinically insignificant
Other
Use of terms such as suspected, likely, concern for, or probable (associated with a specific diagnosis that is being evaluated, monitored, or treated as if it exists) are acceptable and can be coded in the inpatient setting, when documented at the
time of discharge.
Thank you,
Savi Donovan RN, BSN
CDI Specialist
tiger text
Please use your independent medical judgment in providing your response.
[2024-01-12] MEDS: ULTRAM 50 MG PO (14:47)
[2024-01-12 16:00] VITALS: BP 118/55
--- NOTE | 2024-01-12 17:37 | CM ---
DR Guevara indicted pt ready for discharge.
Contacted [facility] she texted she had a bed.
Covid test negative done upon requested.
Spoke with Joaquin lerma she agreed with [facility] and ambulance requested.
Medical nec form completed.
IMM emailed to [email or web address] at [email or web address] as requested.
[facility]
report [phone]
fax [phone]
PLAN To [facility] via ambulance
== END 2024-01-12 19:35 | DRG 558 ==
LOC: 4 WEST ACU 23:50
PROVIDERS: Orthopaedic Surgery; Physician Assistant Medical; ADMITTING PHYSICIAN Hospitalist; ATTENDING PHYSICIAN Family Medicine; EMERGENCY PHYSICIAN Emergency Medicine; FAMILY PHYSICIAN Student in an Organized Health Care Education/Training Program
DX: M72.2 Plantar fascial fibromatosis (principal); E87.1 Hypo-osmolality and hyponatremia; R53.1 Weakness; M51.36 Other intervertebral disc degeneration, lumbar region; R33.9 Retention of urine, unspecified; R26.2 Difficulty in walking, not elsewhere classified; K59.00 Constipation, unspecified; I48.0 Paroxysmal atrial fibrillation; M06.9 Rheumatoid arthritis, unspecified; E83.52 Hypercalcemia; D72.829 Elevated white blood cell count, unspecified; M47.816 Spondylosis without myelopathy or radiculopathy, lumbar region; M41.9 Scoliosis, unspecified; Z79.52 Long term (current) use of systemic steroids; Z79.01 Long term (current) use of anticoagulants; Z11.52 Encounter for screening for COVID-19
CPT/HCPCS: 70450; 72100; 72158; 73502; 73564; 80048; 80053; 81003; 81015; 82306; 82330; 83735; 83970; 84145; 85025; 85027; 87040; 87070; 87086; 87811; 93970; 97162; 97166; 99285; A9575

== ENCOUNTER → 2024-03-28 13:45 | Outpatient (REF) | payer MEDICARE, OTHER, SELFPAY ==
[2024-03-28 16:09] LABS: % Basophils 0.6 % (0-2); % Eosinophils 1.4 % (0-6); % Immature Granulocytes 0.4 % (0-0.5); % Lymphocytes 10.2 % (20.5-51.1); % Monocytes 6.1 % (1.7-9.3); % Neutrophils 81.3 % (42.2-75.2); Absolute Basophils 0.1 10^3/uL (0-0.2); Absolute Eosinophils 0.1 10^3/uL (0-0.7); Absolute Monocytes 0.6 10^3/uL (0.1-0.6); Absolute Neutrophils 7.9 10^3/uL (1.4-6.5); Hematocrit 35.4 % (37.0-47.0); Mean Corp Hgb Conc. 31.1 g/dL (33.0-37.0); Mean Corpuscular Hgb 30.1 pg (27.0-31.0); Mean Corpuscular Volume 96.7 fL (81.0-99.0); Mean Platelet Volume 9.6 fL (7.4-10.4); Nucleated Red Blood Cells % 0 %; Platelet Count 329 10^3/uL (130-400); Red Blood Cell Count 3.66 10^6/uL (4.20-5.40); Red Cell Dist. Width 14.9 % (11.5-14.5); White Blood Cell Count 9.8 10^3/uL (4.8-10.8)
[2024-03-28 16:13] LABS: Erythrocyte Sed Rate 31 mm/hour (0-20)
[2024-03-28 16:26] LABS: ALT (SGPT) 21 U/L (0-35); AST (SGOT) 24 U/L (14-36); Albumin 3.9 g/dl (3.5-5.0); Alkaline Phosphatase 47 U/L (38-126); Blood Urea Nitrogen 20 mg/dl (7-17); Carbon Dioxide 25 mmol/L (22-30); Chloride 104 mmol/L (98-107); Glucose 105 mg/dl (70-99); Sodium 139 mmol/L (135-145); Total Bilirubin 0.3 mg/dl (0.2-1.3); Total Protein 6.7 g/dl (6.3-8.2); eGFR > 60.00
[2024-03-28 16:35] LABS: NT-proBNP 678 pg/ml
== END ==
LOC: HWRAD 13:45
PROVIDERS: ATTENDING PHYSICIAN Internal Medicine; FAMILY PHYSICIAN Internal Medicine Geriatric Medicine
DX: M80.052A Age-related osteoporosis with current pathological fracture, left femur, initial encounter for fracture (principal); M81.0 Age-related osteoporosis without current pathological fracture; G89.29 Other chronic pain; M05.9 Rheumatoid arthritis with rheumatoid factor, unspecified; M54.50 Low back pain, unspecified; Z51.81 Encounter for therapeutic drug level monitoring; Z79.52 Long term (current) use of systemic steroids
CPT/HCPCS: 36415; 77080; 80053; 83880; 85025; 85652; 86140

== ENCOUNTER → 2024-07-04 11:34 | Outpatient (REF) | payer MEDICARE, OTHER, SELFPAY | LOC: DHCBC/DCA 11:34 | PROVIDERS: ATTENDING PHYSICIAN Internal Medicine Cardiovascular Disease; FAMILY PHYSICIAN Internal Medicine Geriatric Medicine | DX: I48.0 Paroxysmal atrial fibrillation (principal) | CPT/HCPCS: 78452; 93017; A9500; J2785 ==

== ENCOUNTER → 2024-08-01 10:16 | Outpatient (REF) | payer MEDICARE, OTHER, SELFPAY ==
[2024-08-01 12:17] LABS: % Basophils 0.5 % (0-2); % Eosinophils 1.8 % (0-6); % Immature Granulocytes 0.4 % (0-0.5); % Lymphocytes 11.4 % (20.5-51.1); % Monocytes 9.5 % (1.7-9.3); % Neutrophils 76.4 % (42.2-75.2); Absolute Basophils 0.1 10^3/uL (0-0.2); Absolute Eosinophils 0.2 10^3/uL (0-0.7); Absolute Lymphocytes 1.2 10^3/uL (1.2-3.4); Absolute Neutrophils 7.7 10^3/uL (1.4-6.5); Hematocrit 35.9 % (37.0-47.0); Hemoglobin 11.6 g/dL (12.0-16.0); Mean Corp Hgb Conc. 32.3 g/dL (33.0-37.0); Mean Corpuscular Hgb 31.2 pg (27.0-31.0); Mean Corpuscular Volume 96.5 fL (81.0-99.0); Mean Platelet Volume 9.8 fL (7.4-10.4); Nucleated Red Blood Cells % 0 %; Platelet Count 266 10^3/uL (130-400); Red Blood Cell Count 3.72 10^6/uL (4.20-5.40); White Blood Cell Count 10.1 10^3/uL (4.8-10.8)
[2024-08-01 12:51] LABS: ALT (SGPT) 17 U/L (0-35); AST (SGOT) 25 U/L (14-36); Alkaline Phosphatase 52 U/L (38-126); Blood Urea Nitrogen 17 mg/dl (7-17); Carbon Dioxide 27 mmol/L (22-30); Chloride 100 mmol/L (98-107); Glucose 97 mg/dl (70-99); Potassium 4.8 mmol/L (3.5-5.1); Sodium 137 mmol/L (135-145); Total Bilirubin 0.3 mg/dl (0.2-1.3); Total Protein 6.4 g/dl (6.3-8.2); eGFR > 60.00
[2024-08-01 13:07] LABS: Erythrocyte Sed Rate 23 mm/hour (0-20)
== END ==
LOC: HWRAD 10:16
PROVIDERS: ATTENDING PHYSICIAN Internal Medicine Rheumatology; FAMILY PHYSICIAN Internal Medicine Geriatric Medicine
DX: M05.9 Rheumatoid arthritis with rheumatoid factor, unspecified (principal); Z51.81 Encounter for therapeutic drug level monitoring
CPT/HCPCS: 36415; 80053; 85025; 85652; 86140

== ENCOUNTER → 2024-11-21 10:49 | Outpatient (REF) | payer MEDICARE, OTHER, SELFPAY ==
[2024-11-21 15:40] LABS: % Basophils 0.8 % (0-2); % Eosinophils 2.8 % (0-6); % Immature Granulocytes 0.1 % (0-0.5); % Monocytes 10.6 % (1.7-9.3); % Neutrophils 70.7 % (42.2-75.2); Absolute Basophils 0.1 10^3/uL (0-0.2); Absolute Eosinophils 0.2 10^3/uL (0-0.7); Absolute Lymphocytes 1.1 10^3/uL (1.2-3.4); Absolute Monocytes 0.8 10^3/uL (0.1-0.6); Absolute Neutrophils 5.3 10^3/uL (1.4-6.5); Hematocrit 38.5 % (37.0-47.0); Hemoglobin 12.4 g/dL (12.0-16.0); Mean Corp Hgb Conc. 32.2 g/dL (33.0-37.0); Mean Corpuscular Hgb 32.2 pg (27.0-31.0); Nucleated Red Blood Cells % 0 %; Platelet Count 205 10^3/uL (130-400); Red Blood Cell Count 3.85 10^6/uL (4.20-5.40); Red Cell Dist. Width 13.5 % (11.5-14.5); White Blood Cell Count 7.5 10^3/uL (4.8-10.8)
[2024-11-21 15:48] LABS: Erythrocyte Sed Rate 15 mm/hour (0-20)
[2024-11-21 16:31] LABS: ALT (SGPT) 21 U/L (0-35); AST (SGOT) 30 U/L (14-36); Albumin 3.9 g/dl (3.5-5.0); Alkaline Phosphatase 46 U/L (38-126); Blood Urea Nitrogen 17 mg/dl (7-17); Calcium 10.5 mg/dl (8.4-10.2); Carbon Dioxide 30 mmol/L (22-30); Chloride 99 mmol/L (98-107); Glucose 101 mg/dl (70-99); Potassium 4.7 mmol/L (3.5-5.1); Sodium 135 mmol/L (135-145); Total Bilirubin 0.4 mg/dl (0.2-1.3); Total Protein 6.5 g/dl (6.3-8.2); eGFR > 60.00
[2024-11-21 16:36] LABS: C-Reactive Protein < 5.00 mg/L (0.0-10.00)
== END ==
LOC: HWLAB 10:49
PROVIDERS: ATTENDING PHYSICIAN Internal Medicine Rheumatology; FAMILY PHYSICIAN Internal Medicine Geriatric Medicine
DX: M05.9 Rheumatoid arthritis with rheumatoid factor, unspecified (principal); M81.0 Age-related osteoporosis without current pathological fracture; Z51.81 Encounter for therapeutic drug level monitoring
CPT/HCPCS: 36415; 80053; 85025; 85652; 86140

== ENCOUNTER → 2025-05-28 10:29 | Outpatient (REF) | payer MEDICARE, OTHER, SELFPAY ==
[2025-05-28 13:25] LABS: Hematocrit 34.3 % (37.0-47.0); Hemoglobin 11.2 g/dL (12.0-16.0); Mean Corp Hgb Conc. 32.7 g/dL (33.0-37.0); Mean Corpuscular Volume 98.6 fL (81.0-99.0); Nucleated Red Blood Cells % 0 %; Platelet Count 212 10^3/uL (130-400); Red Cell Dist. Width 13.4 % (11.5-14.5)
[2025-05-28 13:39] LABS: C-Reactive Protein 16.60 mg/L (0.0-10.00)
[2025-05-28 13:40] LABS: ALT (SGPT) 23 U/L (0-35); AST (SGOT) 29 U/L (14-36); Albumin 4.1 g/dl (3.5-5.0); Alkaline Phosphatase 41 U/L (38-126); Blood Urea Nitrogen 19 mg/dl (7-17); Calcium 10.1 mg/dl (8.4-10.2); Carbon Dioxide 26 mmol/L (22-30); Chloride 108 mmol/L (98-107); Glucose 135 mg/dl (70-99); Potassium 4.7 mmol/L (3.5-5.1); Sodium 137 mmol/L (135-145); Total Protein 6.5 g/dl (6.3-8.2); eGFR > 60.00
[2025-05-28 14:00] LABS: Vitamin D, 25-OH*** 76.8 ng/mL (30-80)
== END ==
LOC: HWLAB 10:29
PROVIDERS: ATTENDING PHYSICIAN Internal Medicine Rheumatology; FAMILY PHYSICIAN Internal Medicine Geriatric Medicine
DX: E55.9 Vitamin D deficiency, unspecified (principal); M05.9 Rheumatoid arthritis with rheumatoid factor, unspecified; Z51.81 Encounter for therapeutic drug level monitoring
CPT/HCPCS: 36415; 80053; 82306; 85025; 85652; 86140

== ENCOUNTER → 2025-07-24 08:57 | Outpatient (REF) | payer MEDICARE, OTHER, SELFPAY ==
[2025-07-24 12:31] LABS: Hematocrit 34.6 % (37.0-47.0); Hemoglobin 11.5 g/dL (12.0-16.0); Mean Corp Hgb Conc. 33.2 g/dL (33.0-37.0); Mean Corpuscular Volume 96.6 fL (81.0-99.0); Nucleated Red Blood Cells % 0 %; Platelet Count 241 10^3/uL (130-400); Red Cell Dist. Width 13.3 % (11.5-14.5)
[2025-07-24 12:50] LABS: ALT (SGPT) 15 U/L (0-35); AST (SGOT) 23 U/L (14-36); Albumin 4.1 g/dl (3.5-5.0); Alkaline Phosphatase 42 U/L (38-126); Blood Urea Nitrogen 15 mg/dl (7-17); Calcium 10.0 mg/dl (8.4-10.2); Carbon Dioxide 27 mmol/L (22-30); Chloride 106 mmol/L (98-107); Glucose 115 mg/dl (70-99); Potassium 4.4 mmol/L (3.5-5.1); Sodium 139 mmol/L (135-145); Total Protein 6.6 g/dl (6.3-8.2); eGFR > 60.00
[2025-07-24 18:22] LABS: Hepatitis B Surface Antigen Negative (Negative)
[2025-07-24 18:40] LABS: Hepatitis C Antibody Negative (Negative)
== END ==
LOC: HWLAB 08:57
PROVIDERS: ATTENDING PHYSICIAN Internal Medicine Rheumatology; FAMILY PHYSICIAN Internal Medicine Geriatric Medicine
DX: B19.10 Unspecified viral hepatitis B without hepatic coma (principal); M05.9 Rheumatoid arthritis with rheumatoid factor, unspecified; M81.0 Age-related osteoporosis without current pathological fracture; Z11.1 Encounter for screening for respiratory tuberculosis; Z51.81 Encounter for therapeutic drug level monitoring
CPT/HCPCS: 36415; 80053; 85025; 86480; 86704; 86706; 86803; 87340